=== PATIENT | female | born 1945 | race Caucasian/White ===

== ENCOUNTER 2018-11-19 08:10 | Inpatient (IN) | payer OTHER ==
[~2018-11-19] VITALS: Ht 167.6 cm; Wt 162.4 kg
[2018-11-19] VITALS (28 sets, daily range): BP systolic 66–193; BP diastolic 27–79
[~2018-11-19 08:10] MED LIST: ACET-868 PO; APIX5TAB PO; LEVO500T75 PO
--- NOTE | 2018-11-19 08:15 | NUR ---
PT BIBRA FROM SNF TO ER BED 05. PER REPORT, PT WAS NOTED TO BE ACTIVELY SEIZING FOR APPROX 30 MINS, FENTANYL 5 MCG IM GIVEN. BLOOD GLUCOSE WAS 88 TAKEN BEE TENDER. GOWNED AND PLACED ON MONITOR, AWAITING MD BUTT.
--- NOTE | 2018-11-19 08:16 | NUR ---
DR ATKINS AT BEDSIDE
[2018-11-19] MEDS ORDERED: LEVETIRACETAM (500MG) 500 MG in IV NS 0.9% 100 ML IV ONE (08:30)
[2018-11-19] MEDS ORDERED: IV NS 0.9% 1,000 ML BAG IV ONE (08:30)
[2018-11-19 08:48] LABS: BASOPHILS # (AUTO) 0.1 /CMM (0.0-0.2); BASOPHILS % (AUTO) 0.7 % (0.0-2.0); HEMATOCRIT 52 % (33-45); HEMOGLOBIN 15.9 g/dL (11.5-14.8); LYMPHOCYTES # (AUTO) 0.3 /CMM (0.8-4.8); LYMPHOCYTES % (AUTO) 3.2 % (20.0-44.0); MEAN CORPUSCULAR HGB CONC 31 g/dl (31.0-36.0); MEAN CORPUSCULAR VOLUME 104 fL (82-100); MONOCYTES # (AUTO) 0.8 /CMM (0.1-1.30); MONOCYTES % (AUTO) 8.2 % (2.0-12.0); NEUTROPHILS # (AUTO) 8.6 /CMM (1.8-8.9); NEUTROPHILS % (AUTO) 87.9 % (43.0-81.0); PLATELET COUNT (AUTO) 222 /CMM (150-450); WHITE BLOOD COUNT (AUTO) 9.8 K/uL (4.3-11.0)
--- NOTE | 2018-11-19 08:48 | NUR ---
PT TO RADIOLOGY FOR HEAAD CT SCAN VIA [facility].
[2018-11-19 08:54] LABS: CALCIUM, SERUM 8.8 mg/dL (8.5-10.1); CARBON DIOXIDE 36 mmol/L (21-32); CHLORIDE 105 mmol/L (98-107); CREATININE 2.2 mg/dL (0.6-1.3); GLUCOSE 88 mg/dL (74-106); POTASSIUM 4.8 mmol/L (3.5-5.1); SODIUM SERUM 146 mmol/L (136-145); UREA NITROGEN, BLOOD 23 mg/dL (7-18)
[2018-11-19] MEDS ORDERED: DOCU-141 PO (08:54)
[2018-11-19] MEDS ORDERED: TRAM50TA2 PO (08:54)
[2018-11-19] MEDS ORDERED: AMIN30LI27 PO (08:54)
[2018-11-19] MEDS ORDERED: HYDR-4384 PO (08:54)
[2018-11-19] MEDS ORDERED: GUAI100S11 PO (08:54)
[2018-11-19] MEDS ORDERED: ASCO500T9 PO (08:54)
[2018-11-19] MEDS ORDERED: ACET100V5 NEB (08:54)
[2018-11-19] MEDS ORDERED: LEVA0.6320 IH (08:54)
[2018-11-19] MEDS ORDERED: BISA10SU8 RC (08:54)
[2018-11-19] MEDS ORDERED: IPRA3AMP23 IH (08:54)
[2018-11-19] MEDS ORDERED: ROSU10TA2 PO (08:54)
[2018-11-19] MEDS ORDERED: MULT-447 PO (08:54)
[2018-11-19] MEDS ORDERED: NA P133E RC (08:54)
[2018-11-19] MEDS ORDERED: MAGN400O6 PO (08:54)
[2018-11-19] MEDS ORDERED: MIRT15TA7 PO (08:54)
[2018-11-19] MEDS ORDERED: FURO-145 PO (08:54)
[2018-11-19 09:01] LABS: ALANINE AMINOTRANSFERASE 32 U/L (12-78); ALBUMIN 2.9 g/dL (3.4-5.0); ALKALINE PHOSPHATASE 202 U/L (46-116); ASPARTATE AMINOTRANSFERASE 53 U/L (15-37); BILIRUBIN,DIRECT 0.9 mg/dL (0.0-0.2); BILIRUBIN,TOTAL 1.3 mg/dL (0.2-1.0); TOTAL PROTEIN, SERUM 6.6 g/dL (6.4-8.2)
--- NOTE | 2018-11-19 09:58 | NUR ---
REPORT GIVEN TO ALEXUS JEAN OF [facility] FOR BECK[facility].
--- NOTE | 2018-11-19 11:00 | NUR ---
[facility] ASSEMBLER MOVEMENT NOTES RECEIVED PT FROM ER TO ROOM VIA [email or web address].PT LOOKS SLEEPY AND DROWSY BUT RESPONSE WITH PAINFUL STIMULUS.ON TELE HR [address]WITH 15L O2 VIA NON BREATHER MASK.NO SOB AND ACUTE DISTRESS NOTED.IV LINE IS ON LEFT FA G20,HEPLOCK.SITE IS CLEAN,DRY AND INTACT.NO INFILTRATION NOTED.SKIN ASSESSMENT IS DONE,PHOTOS HAS TAKEN.VITAL SIGNS CHECKED AND RECORDED.PT IS CLEAN AND DRY.SAFETY IS MAINTAINED AT ALL TIMES.SEIZURE PRECAUTION HAS DONE.BED IS IN LOW POSITION AND LOCKED.CALL LIGHT IS WITHIN REACH.WILL CONTINUE TO MONITOR THE PT CLOSELY.
--- NOTE | 2018-11-19 12:30 | NUR ---
R[facility] RN NOTES RP MR.LANESON CHANGED THE CODE STATUS FROM DNR TO FULL CODE.
[2018-11-19] MEDS ORDERED: BISACODYL SUPP (10 MG) 10 MG/SUPP.RECT SUPP.RECT RC PRN (14:00)
[2018-11-19] MEDS ORDERED: NA PHOS,M-B/NA PHOS,DI-BA 1 EA ENEMA RC PRN (14:00)
[2018-11-19] MEDS ORDERED: MAGNESIUM HYDROXIDE 30 ML UDC PO PRN (14:00)
[2018-11-19] MEDS ORDERED: DOCUSATE SODIUM 100 MG CAPSULE PO PRN (14:00)
[2018-11-19] MEDS ORDERED: GUAIFENESIN 300 MG/15 ML UDC PO PRN (14:00)
--- NOTE | 2018-11-19 16:15 | NUR ---
[facility] RN NOTES NOTED WITH O2 SAT 86% WITH NION BREATHER 15L.SUCTIONED MOUTH,STILL DESATURATING.CALLED AND INFORMED HIM.
[2018-11-19] MEDS ORDERED: PANTOPRAZOLE 40 MG VIAL IV SCH (16:30)
--- NOTE | 2018-11-19 16:30 | NUR ---
ROHIT JEAN NOTES DISCUSSED THE CODE STATUS WITH THE SON FRITZ,PT IS FULL CODE, MADE AWARE.PENDING TO SIGN THE POLST.
--- NOTE | 2018-11-19 16:30 | NUR ---
ROHIT RN NOTES SEEN TH EPT,NOTED WITH NON RESPONSIVE AND DESATURATING.ORDERED TO TRANSFER ICU AND INTUBATE PT.
--- NOTE | 2018-11-19 16:45 | NUR ---
[facility] RN NOTES TRANSFERRED PT TO ICU ROOM 262 AND GIVEN REPORT TO TED LANDRY FOR BECKIE.
[2018-11-19] MEDS ORDERED: ALBUTEROL FS 2.5 MG/0.5 ML VIAL.NEB NEB PRN (17:00)
[2018-11-19] MEDS ORDERED: ASCORBIC ACID 500 MG TABLET PO SCH (17:00)
[2018-11-19] MEDS ORDERED: APIXABAN 5 MG TABLET PO SCH (17:00)
[2018-11-19] MEDS ORDERED: IPRATROPIUM NEB FS 0.5 MG/2.5 ML AMPUL.NEB NEB PRN (17:00)
[2018-11-19] MEDS ORDERED: PIPERACILLIN /TAZOBACTAM 3.375 G in IV D5W 50 ML IV ONE (17:00)
--- NOTE | 2018-11-19 17:12 | NUR ---
CALLED DOWN TO PLACE PT ON BIPAP IN [facility] PER DR. CORNEJO. UPON ASSESSMENT OF PATIENT, PT ON NRB AT 15LPM, SPO2 93%, PT IS UNAROUSABLE. TOLD DR. CORNEJO THIS PATIENT NEEDS TO BE INTUBATED. PT TRANSFERRED TO [facility]. INTUBATED IN RM [address] MOISES NGUYEN. PT INTUBATED WITH A 7.5ETT AT 25CM AT THE LIP. VENT SETTINGS PER DR. NGUYEN. VENT ALARMS SET AND AUDIBLE PER POLICY. VENT PLUGGED INTO RED OUTLET. X-RAY AND ABG PENDING. Addendum: 11/19/18 at 1716 by HIWOT MUNOZ RT Amended: Links added.
--- NOTE | 2018-11-19 17:17 | NUR ---
RN NOTE 1700: Received patient from [facility], accompanied by nurses, RTs and Dr. Peters. Prepared for rapid intubation, patient has no reactions. No gag reflex, unable to arouse even in deep pain. Per report, with episode of seizure, CT head (-). With Verdin cath intact, noted with harvinder colored urine drained to BSD. Afib 100-110's. Intub[address] by Dr. Peters. Seen by Dr. Garg. Given 20 Etomidate and 60 Rocu. LH PIV g20.
[2018-11-19] MEDS: PIPERACILLIN /TAZOBACTAM 2.25 G in IV D5W 100 ML IV SCH ×2 (17:19→23:27)
[2018-11-19] MEDS ORDERED: ETOMIDATE 2 MG/ML VIAL IV ONE (17:25)
[2018-11-19] MEDS ORDERED: ROCURONIUM BROMIDE 50 MG/5 ML IV ONE (17:25)
[2018-11-19] MEDS ORDERED: NOREPINEPHRINE 16 MG in IV D5W 500 ML IV PRN (17:30)
[2018-11-19] MEDS ORDERED: IV NS 0.9% 500 ML IV ONE (17:30)
--- NOTE | 2018-11-19 17:49 | NUR ---
RN NOTE 1630: Placed OGT, noted with 500mL dark brown residuals, Dr. Garg made aware, with order to make the Protonix BID. 1750: Benitez, son at bedside, discussed re: the POC and all questions/concerns were answered. PICC line consented by son.
[2018-11-19 18:12] LABS: ABG BASE EXCESS 0.7 mmol/L; ABG PCO2 88.7 mmHg (35.0-45.0); ABG PO2 92.9 mmHg (75.0-100.0); AaDO2 531.4 mmHg; COHb 1.6 % (0.5-1.5); MetHb 0.6 % (0.0-1.5); O2Hb 94.9 % (94.0-97.0); SITE, ABG Right Radial; VENT MODE, BG AC 16 600 100% +5
--- NOTE | 2018-11-19 18:24 | NUR ---
RN NOTE Spoke wtibh Dr. Garg, obtained order for Ativan for seizure and change Vt 650. Obtained pulmo consult, spoke with Dr. Pimentel with order to change AC 20 than ABG 2200.
[2018-11-19] MEDS: LORAZEPAM INJ 2 MG/ML VIAL IV PRN (18:26)
[2018-11-19] MEDS: IV 1/2NS 1000 ML 1,000 ML IV PRN (18:36)
[2018-11-19] MEDS: PROPOFOL 100 ML IV PRN ×2 (18:43→22:05)
--- NOTE | 2018-11-19 18:50 | NUR ---
RN NOTE Ativan given x1, but patient still seizing, made Dr. Garg aware, with order to may start Diprivan for continuous medication to control seizure for now.
--- NOTE | 2018-11-19 18:51 | NUR ---
RN NOTE Sons at bedside, done with PICC line insertion in the MU.
--- NOTE | 2018-11-19 19:00 | NUR ---
RN NOTE Dip on 20mcg, no seizure now. Will keep on 20 mcg for now.
--- NOTE | 2018-11-19 19:00 | NUR ---
RT PT RECEIVED INTUBATED WITH 7.7 ETT @25 ON THE LIP ON [facility] VENT. VENT SETTINGS CHANGED TO RATE 20 AND VT 650 PER MD ORDER. NO SIGNS OF DISTRESS/SOB NOTED AT THIS TIME. AIRWAY PATENT AND SECURED. ALARMS SET AND AUDIBLE. AMBUBAG AT BEDSIDE. PT SUCTIONED. PT GIVEN HHN TX. NO ADVERSE REACTION. VENT CONNECTED TO RED OUTLET. ABG SCHEDULED AT 2200. WILL CONT TO MONITOR. Addendum: 11/19/18 at 0 by KASSIE GIPSON RT Amended: Links added. Addendum: 11/20/18 at 0212 by KASSIE GIPSON RT CORRECTION: ETT SIZE 7.5
[2018-11-19] MEDS: LEVALBUTEROL HCL NEB 1.25 MG/0.5 ML VIAL.NEB IH SCH (19:10)
--- NOTE | 2018-11-19 20:06 | NUR ---
INSTRUMENTAL TEACHER NOTES DR CORNEJO NOTIFIED REGARDING LATEST BP TRENDS. 83/78, PREVIOUSLY 84/49 [address] 77/[address]. DR CORNEJO WITH ORDER TO START LEVOPHED. ORDERS READ BACK FO4 CLARIFICATION. WILL INITIATE PRESSOR AND CONTINUE CLOSE MONITORING
[2018-11-19] MEDS ORDERED: NOREPINEPHRINE 8 MG in IV D5W 500 ML IV PRN (20:30)
[2018-11-19] MEDS: PANTOPRAZOLE 40 MG VIAL IV SCH (20:47)
[2018-11-19] MEDS: VALPROIC ACID 250 MG/5 ML UDC GT SCH (20:47)
[2018-11-19] MEDS: HEPARIN SODIUM, PORCINE 5000 UNITS/1 ML VIAL SQ SCH (21:00)
--- NOTE | 2018-11-19 21:00 | NUR ---
THERAPEUTIC RECREATION SPECIALIST NOTES SCHEDULED MEDICATION HEPARIN 5K UNITS SQ. PATIENT'S SON FRITZ AT BEDSIDE, REFUSING MEDICATION DUE TO DARK BROWN OUTPUT FROM OGT, POSSIBLE GIB. MEDICATION HELD PER FAMILY REQUEST. WILL CONTINUE TO CLOSELY MONITOR
--- NOTE | 2018-11-19 21:45 | NUR ---
SPRING TACKER NOTES PATIENT TRANSFERRED TO [facility] BED BY MULTIPLE SUGAR CANE GROWER AND RT, TOLERATED TRANSFER WELL. WELL CONTINUE CLOSE MONITORING
[2018-11-19] MEDS: LEVETIRACETAM (500MG) 500 MG in IV NS 0.9% 100 ML IV SCH (22:04)
[2018-11-19 22:40] LABS: ABG BASE EXCESS 8.5 mmol/L; ABG OXYGEN SATURATION 98.6 % (92.0-98.5); ABG PCO2 34.8 mmHg (35.0-45.0); ABG PH 7.564 (7.350-7.450); ABG PO2 104.7 mmHg (75.0-100.0); AaDO2 573.5 mmHg; COHb 0.8 % (0.5-1.5); MetHb 0.3 % (0.0-1.5); O2Hb 97.5 % (94.0-97.0); PEEP,BG 5 cm H2O; SITE, ABG Right Radial; VT, ABG 650 mL
[2018-11-19] MEDS ORDERED: PIPERACILLIN /TAZOBACTAM 3.375 G in IV D5W 100 ML IV SCH (23:00)
[2018-11-19] MEDS ORDERED: PIPERACILLIN /TAZOBACTAM 2.25 G in IV D5W 100 ML IV SCH (23:00)
[2018-11-19] MEDS: IV NS 0.9% 250 ML IV PRN (23:29)
[2018-11-20] VITALS (95 sets, daily range): BP systolic 65–120; BP diastolic 37–79
[2018-11-20] MEDS: LEVALBUTEROL HCL NEB 1.25 MG/0.5 ML VIAL.NEB IH SCH ×4 (01:23→19:29)
[2018-11-20] MEDS: PROPOFOL 100 ML IV PRN (03:19)
[2018-11-20 05:06] LABS: BASOPHILS # (AUTO) 0.1 /CMM (0.0-0.2); MONOCYTES # (AUTO) 0.9 /CMM (0.1-1.30); MONOCYTES % (AUTO) 4.5 % (2.0-12.0)
[2018-11-20 05:14] LABS: CALCIUM, SERUM 8.6 mg/dL (8.5-10.1); CARBON DIOXIDE 32 mmol/L (21-32); CHLORIDE 104 mmol/L (98-107); CREATININE 2.3 mg/dL (0.6-1.3); GLUCOSE 99 mg/dL (74-106); POTASSIUM 4.3 mmol/L (3.5-5.1); SODIUM SERUM 145 mmol/L (136-145); UREA NITROGEN, BLOOD 33 mg/dL (7-18)
[2018-11-20 05:22] LABS: BASOPHILS % (AUTO) 0.3 % (0.0-2.0); HEMATOCRIT 47 % (33-45); HEMOGLOBIN 14.9 g/dL (11.5-14.8); LYMPHOCYTES # (AUTO) 0.6 /CMM (0.8-4.8); MEAN CORPUSCULAR HGB CONC 32 g/dl (31.0-36.0); MEAN CORPUSCULAR VOLUME 100 fL (82-100); NEUTROPHILS # (AUTO) 19.2 /CMM (1.8-8.9); NEUTROPHILS % (AUTO) 92.2 % (43.0-81.0); PLATELET COUNT (AUTO) 215 /CMM (150-450); RED BLOOD CELL COUNT(AUTO) 4.69 MIL/uL (4.0-5.2); THYROID STIMULATING HORMONE 0.998 uIU/mL (0.358-3.74); WHITE BLOOD COUNT (AUTO) 20.8 K/uL (4.3-11.0)
[2018-11-20] MEDS: IV 1/2NS 1000 ML 1,000 ML IV PRN ×2 (05:50→15:58)
[2018-11-20] MEDS: PIPERACILLIN /TAZOBACTAM 2.25 G in IV D5W 100 ML IV SCH ×2 (05:50→10:12)
--- NOTE | 2018-11-20 07:00 | NUR ---
LAND MOBILE RADIO TECHNICIAN CLOSING NOTES PATIENT RESTING IN BED, APPEARS COMFORTABLE, NO FACIAL GRIMACE NOTED. PATIENT REMAINS INTUBATED WHILE ON MECHANICAL VENTILATOR, FIO2 TITRATED DOWN TO 60%, TOLERATING WELL. LEVOPHED DRIP TITRATED UP TO 18MCG/MIN. WILL ENDORSE THE PATIENT TO THE AM SHIFT NURSE FOR CONTINUITY OF CARE
[2018-11-20 07:19] LABS: MAGNESIUM 1.7 mg/dL (1.8-2.4); PHOSPHORUS 2.2 mg/dL (2.5-4.9)
[2018-11-20 08:21] LABS: ABG BASE EXCESS 10.5 mmol/L; ABG OXYGEN SATURATION 98.4 % (92.0-98.5); ABG PCO2 29.5 mmHg (35.0-45.0); ABG PO2 100.3 mmHg (75.0-100.0); AaDO2 295.1 mmHg; COHb 0.5 % (0.5-1.5); MetHb 0.5 % (0.0-1.5); O2Hb 97.4 % (94.0-97.0); SITE, ABG Right Radial
--- NOTE | 2018-11-20 08:30 | NUR ---
RN NOTE 0715: Received patient on sedation of Dip @ 20. Will titrate as ordered. With ETT to vent tolerated settings at this time. With MU PICC intact. On IVF infusing as ordered, Levo @ 18mcg. Verdin cath intact, noted with harvinder colored urine drained to BSD. On Big boy bed, turning frequently. GLASS SANDER BELT restraints on for safety. 0800: Diprivan turned off, will monitor for seizure. 0830: S/E by Dr. Garg, off Diprivan now, will continue monitoring for seizures and mentation, noted with BLE movements. Still on 18mcg of Levo. Made aware re: the episode of Vtach run @ 0630 informed by previous nurse. MD aware for the ABG result, with order of vent changes AC 20 600 40, 0 PEEP, RT at bedside aware. Per MD, he will order Mg.
[2018-11-20] MEDS: LEVETIRACETAM (500MG) 500 MG in IV NS 0.9% 100 ML IV SCH (08:55)
[2018-11-20] MEDS: HEPARIN SODIUM, PORCINE 5000 UNITS/1 ML VIAL SQ SCH ×2 (08:56→21:00)
[2018-11-20] MEDS ORDERED: FUROSEMIDE 20 MG TABLET PO SCH (09:00)
[2018-11-20] MEDS ORDERED: MULTIVIT W/MINERALS 1 TAB TABLET PO SCH (09:00)
[2018-11-20] MEDS: Magnesium 1GM/D5W 100ML PREMIX 100 ML IV SCH ×3 (09:01→10:59)
[2018-11-20] MEDS: VALPROIC ACID 250 MG/5 ML UDC GT SCH (09:01)
[2018-11-20] MEDS: PANTOPRAZOLE 40 MG VIAL IV SCH ×2 (09:01→22:04)
[2018-11-20] MEDS: LORAZEPAM INJ 2 MG/ML VIAL IV PRN (11:34)
[2018-11-20] MEDS: POTASSIUM PHOSPHATE MM 7.5 MMOL in IV D5W 100 ML IV SCH ×2 (12:56→15:58)
[2018-11-20] MEDS: ACETYLCYSTEINE 10% SOLN 400 MG/4 ML VIAL NEB SCH ×2 (15:23→23:03)
[2018-11-20] MEDS: PIPERACILLIN /TAZOBACTAM 3.375 G in IV D5W 100 ML IV SCH (17:27)
--- NOTE | 2018-11-20 17:37 | NUR ---
RN NOTE 1130: S/E by Dr. No, with new orders of Mucomyst, CPT. US lungs done, no effusion seen. 1500: S/E by Dr. Buck, spoke with 2 family members at bedside, discussed re: the POC. 1700: Noted patient with more movements, 2 sons at bedside.
[2018-11-20] MEDS ORDERED: phenytoin SODIUM IV 1,500 MG in IV NS 0.9% 100 ML IV ONE (18:30)
--- NOTE | 2018-11-20 20:53 | NUR ---
SULPHATE TESTER INITIAL NOTES RECEIVED PATIENT RESTING IN BED, OFF DIPRIVAN @ 0800, APPEARS COMFORTABLE, NO FACIAL GRIMACE NOTED. PATIENT REMAINS INTUBATED WHILE ON MECHANICAL VENTILATOR, FIO2 TITRATED DOWN TO 50%, TOLERATING WELL. LEVOPHED DRIP TITRATED UP TO 18MCG/MIN, CONT' 1/2 NS @ 100 ML/HR, WELL TOLERATED, MU PICC INTACT, NO SIGN OF INFILTRATION NOTED. WILL CONT' TO MONITOR PT.
--- NOTE | 2018-11-20 21:00 | NUR ---
HEPARIN 5000 UNITS HOLD, PT 13.4, WILL ENDORSE TO AM SHIFT TO F/U WITH DR CORNEJO.
[2018-11-20] MEDS ORDERED: ATORVASTATIN 10 MG TABLET PO SCH (22:00)
[2018-11-21] VITALS (55 sets, daily range): BP systolic 85–120; BP diastolic 12–83
[2018-11-21] MEDS: LEVALBUTEROL HCL NEB 1.25 MG/0.5 ML VIAL.NEB IH SCH ×4 (00:43→19:53)
[2018-11-21] MEDS: PHENYTOIN SODIUM IV 50 MG/ML VIAL IV SCH ×3 (00:49→16:29)
[2018-11-21] MEDS: PIPERACILLIN /TAZOBACTAM 3.375 G in IV D5W 100 ML IV SCH ×3 (03:26→18:00)
[2018-11-21] MEDS: IV 1/2NS 1000 ML 1,000 ML IV PRN ×2 (04:51→16:39)
[2018-11-21 05:03] LABS: BASOPHILS % (AUTO) 0.3 % (0.0-2.0); EOSINOPHILS % (AUTO) 0.1 % (0.0-6.0); HEMATOCRIT 42 % (33-45); HEMOGLOBIN 13.8 g/dL (11.5-14.8); LYMPHOCYTES # (AUTO) 0.6 /CMM (0.8-4.8); LYMPHOCYTES % (AUTO) 5.1 % (20.0-44.0); MEAN CORPUSCULAR HGB CONC 33 g/dl (31.0-36.0); MEAN CORPUSCULAR VOLUME 97 fL (82-100); MONOCYTES # (AUTO) 0.8 /CMM (0.1-1.30); MONOCYTES % (AUTO) 6.9 % (2.0-12.0); NEUTROPHILS # (AUTO) 10.2 /CMM (1.8-8.9); NEUTROPHILS % (AUTO) 87.6 % (43.0-81.0); PLATELET COUNT (AUTO) 189 /CMM (150-450); RED BLOOD CELL COUNT(AUTO) 4.32 MIL/uL (4.0-5.2); WHITE BLOOD COUNT (AUTO) 11.7 K/uL (4.3-11.0)
[2018-11-21 05:11] LABS: ALANINE AMINOTRANSFERASE 25 U/L (12-78); ALBUMIN 2.1 g/dL (3.4-5.0); ALKALINE PHOSPHATASE 121 U/L (46-116); ASPARTATE AMINOTRANSFERASE 46 U/L (15-37); BILIRUBIN,TOTAL 1.6 mg/dL (0.2-1.0); CALCIUM, SERUM 8.1 mg/dL (8.5-10.1); CARBON DIOXIDE 31 mmol/L (21-32); CHLORIDE 104 mmol/L (98-107); CREATININE 1.7 mg/dL (0.6-1.3); GLUCOSE 126 mg/dL (74-106); PHOSPHORUS 1.7 mg/dL (2.5-4.9); POTASSIUM 3.3 mmol/L (3.5-5.1); SODIUM SERUM 142 mmol/L (136-145); TOTAL PROTEIN, SERUM 5.2 g/dL (6.4-8.2); UREA NITROGEN, BLOOD 30 mg/dL (7-18)
--- NOTE | 2018-11-21 06:03 | NUR ---
MOLDER SWEEP CLOSING NOTES ENDORSED PATIENT RESTING IN BED, OFF DIPRIVAN @ 0800, APPEARS COMFORTABLE, NO FACIAL GRIMACE NOTED. PATIENT REMAINS INTUBATED WHILE ON MECHANICAL VENTILATOR, FIO2 TITRATED DOWN TO 50%, TOLERATING WELL. LEVOPHED DRIP TITRATED UP TO 18MCG/MIN, CONT' 1/2 NS @ 100 ML/HR, WELL TOLERATED, MU PICC INTACT, NO SIGN OF INFILTRATION NOTED. WILL CONT' TO MONITOR PT.
[2018-11-21] MEDS ORDERED: phenytoin SODIUM IV 1,000 MG in IV NS 0.9% 100 ML IV ONE (08:00)
[2018-11-21] MEDS: ACETYLCYSTEINE 10% SOLN 400 MG/4 ML VIAL NEB SCH ×3 (08:04→23:42)
[2018-11-21 08:51] LABS: ABG BASE EXCESS 10.9 mmol/L; ABG OXYGEN SATURATION 95.1 % (92.0-98.5); ABG PCO2 36.7 mmHg (35.0-45.0); ABG PH 7.577 (7.350-7.450); ABG PO2 73.3 mmHg (75.0-100.0); AaDO2 241.9 mmHg; COHb 0.8 % (0.5-1.5); MetHb 0.6 % (0.0-1.5); O2Hb 93.8 % (94.0-97.0); SITE, ABG Right Radial; VENT MODE, BG AC 20 600 50% +3
[2018-11-21] MEDS: HEPARIN SODIUM, PORCINE 5000 UNITS/1 ML VIAL SQ SCH ×2 (09:13→20:45)
[2018-11-21] MEDS: PANTOPRAZOLE 40 MG VIAL IV SCH ×2 (09:13→20:44)
[2018-11-21] MEDS ORDERED: POTASSIUM CL. PREMIX PERIPHER. 50 ML IV SCH ×2 (09:30→13:30)
[2018-11-21] MEDS ORDERED: NOREPINEPHRINE 16 MG in IV D5W 500 ML IV PRN ×5 (10:00→18:00)
--- NOTE | 2018-11-21 10:00 | NUR ---
PT LETHARGIC, BUT OPENS EYES TO TACTILE STIMULI NO SEIZURE ACTIVITY NOTED. LEVOPHED TITRATED OFF PER PROTOCOL SBP REMAINS >90. PT ASSISTED WITH AM HYGRINE. NO OUTPUT VIA NGT NOTED WILL VERIFY WITH MD IF OK TO CLAMP. WILL REPLACE K AND PHOS ORDERED.
[2018-11-21] MEDS: Potassium Phosphate meq 11 MEQ in IV D5W 100 ML IV SCH ×2 (13:25→16:27)
[2018-11-21] MEDS ORDERED: POTASSIUM CHLORIDE 10 MEQ/50 ML PREMIXED IVPB FOR PERIPHERAL LINE IV ONE (13:30)
--- NOTE | 2018-11-21 20:00 | NUR ---
RN NOTES RECEIVED PT WITH ETT 7.5/ 25 CM AT LIP WITH VENT SETTING OF AC 14 TV 550 FIO2 50% PEEP 5. a-FIB ON TELE MONITOR OPENS EYES. NO sob OR ACUTE RESPIRATORY DISTRESS. NO SEDATION OFF FROM PRESSORS. AFEBRILE. NO EPISODE OF SEIZURE PRESENT. OGT CLAMPED WITH GREENISH COLOR RESIDUAL.. F/C DRAINED YAN GRAVITY WITH WM COLOR URINE. IV SITE ON MU PICC LINE RUNNING WITH 1/2 NS @ 100 ML/HR INTACT AND PATENT WITH GOOD BLOOD RETURN. KEPT PT CLEAN AND COMFORTABLE IN BED. BIG BOY MATTRESS KEPT IN LOWEST POSSIBLE POSITION. BED LOCKED AT ALL TIMES.
--- NOTE | 2018-11-21 20:37 | NUR ---
PT RECEIVED INTUBATED ON VENT. TOLERATING SETTINGS. CPT DONE. SX'D FOR MOD AMT OF THICK YELLOW SECRETIONS. VENT ALARMS SET AND AUDIBLE. AMBU BAG AT BEDSIDE. VENT PLUGGED INTO RED OUTLET. WILL CONTINUE TO MONITOR. Addendum: 11/21/18 at 2037 by BASSEM PARK RT Amended: Links added.
[2018-11-21] MEDS: NYSTATIN TOP POWDER 15 GM BOTTLE TP SCH (20:42)
--- NOTE | 2018-11-21 21:00 | NUR ---
RN NOTES CPT DONE BY RT
[2018-11-22] VITALS (58 sets, daily range): BP systolic 83–147; BP diastolic 48–91
[2018-11-22] MEDS: PHENYTOIN SODIUM IV 50 MG/ML VIAL IV SCH ×3 (00:15→21:01)
[2018-11-22] MEDS: LEVALBUTEROL HCL NEB 1.25 MG/0.5 ML VIAL.NEB IH SCH ×2 (01:13→07:46)
[2018-11-22] MEDS: PIPERACILLIN /TAZOBACTAM 3.375 G in IV D5W 100 ML IV SCH ×3 (01:26→17:08)
[2018-11-22] MEDS: IV 1/2NS 1000 ML 1,000 ML IV PRN ×2 (02:24→13:53)
[2018-11-22 04:35] LABS: BASOPHILS # (AUTO) 0.1 /CMM (0.0-0.2); BASOPHILS % (AUTO) 0.8 % (0.0-2.0); EOSINOPHILS % (AUTO) 1.8 % (0.0-6.0); HEMATOCRIT 42 % (33-45); HEMOGLOBIN 13.6 g/dL (11.5-14.8); LYMPHOCYTES # (AUTO) 0.4 /CMM (0.8-4.8); LYMPHOCYTES % (AUTO) 5.5 % (20.0-44.0); MEAN CORPUSCULAR HGB CONC 33 g/dl (31.0-36.0); MEAN CORPUSCULAR VOLUME 97 fL (82-100); MONOCYTES # (AUTO) 0.6 /CMM (0.1-1.30); MONOCYTES % (AUTO) 7.4 % (2.0-12.0); NEUTROPHILS # (AUTO) 6.6 /CMM (1.8-8.9); NEUTROPHILS % (AUTO) 84.5 % (43.0-81.0); PLATELET COUNT (AUTO) 167 /CMM (150-450); RED BLOOD CELL COUNT(AUTO) 4.32 MIL/uL (4.0-5.2); WHITE BLOOD COUNT (AUTO) 7.8 K/uL (4.3-11.0)
[2018-11-22 04:51] LABS: CALCIUM, SERUM 7.9 mg/dL (8.5-10.1); CARBON DIOXIDE 33 mmol/L (21-32); CHLORIDE 103 mmol/L (98-107); CREATININE 1.3 mg/dL (0.6-1.3); GLUCOSE 85 mg/dL (74-106); PHOSPHORUS 2.5 mg/dL (2.5-4.9); POTASSIUM 3.4 mmol/L (3.5-5.1); SODIUM SERUM 143 mmol/L (136-145); UREA NITROGEN, BLOOD 23 mg/dL (7-18)
--- NOTE | 2018-11-22 06:55 | NUR ---
RN NOTES PATIENT IN STABLE CONDITION,CONTINUE WITH ETT AND VENT, SETTING TOLERATED WELL. STILL A- FIB CONTROLLED ON TELE MONITOR AFEBRILE. VSS NO SIGNIFICANT BECKIE THROUGHOUT THE SHIFT. NO PRESSOR NO SEDATION. BED BATH DONE AND TOLERATED WELL. SATURATION REMAINED >96%. PT IS CLEAN AND DRY. ALL DUE MEDICINE ADMINISTERED ORDERED. WILL ENDORSED CONTINUITY OFCARE TO AM NURSE..
[2018-11-22] MEDS ORDERED: PHENYTOIN SODIUM IV STA (07:00)
[2018-11-22] MEDS ORDERED: NS 0.9% IV STA (07:00)
[2018-11-22] MEDS: ACETYLCYSTEINE 10% SOLN 400 MG/4 ML VIAL NEB SCH ×3 (07:46→23:27)
--- NOTE | 2018-11-22 08:24 | NUR ---
SEROLOGY TEACHER NOTE RCVD PT AWAKE, RESPONDS TO NAME, LETHARGIC, NOT FOLLOWING COMMANDS BUT APPEARS TO ACKNOWLEDGE INFORMATION GIVEN, BILATERAL SOFT WRIST RESTRAINTS IN PLACE, CIRCULATION CHECKS DONE, RELEASE OF RESTRAINTS DONE WITH PASSIVE ROM, PT REACHES TO ETT WHEN RELEASED. AFIB ON MONITOR WITH CONTROLLED RATE. TOLERATING ORDERED VENT SETTINGS WELL. OG-TUBE CLAMPED PLACEMENT VERIFIED BY AUSCULTATION/ASPIRATION OF GASTRIC CONTENTS, GARCIA TO GRAVITY DRAINING WM COLORED URINE. IV SITES C/D/I/PATENT. NO S/O INFILTRATION/PHLEBITIS OBSERVED UPON FLUSHING. WILL CONTINUE TO MONITOR PT FOR SAFETY AND COMFORT. BED IN LOW AND LOCKED POSITION. CALL LIGHT WITHIN REACH. HEAD OF BED ELEVATED.
[2018-11-22] MEDS: PANTOPRAZOLE 40 MG VIAL IV SCH ×2 (09:16→21:02)
[2018-11-22] MEDS: NYSTATIN TOP POWDER 15 GM BOTTLE TP SCH ×2 (09:17→17:04)
[2018-11-22] MEDS: HEPARIN SODIUM, PORCINE 5000 UNITS/1 ML VIAL SQ SCH ×2 (09:19→21:03)
[2018-11-22] MEDS: ALBUTEROL FS 2.5 MG/3 ML VIAL.NEB NEB SCH ×4 (11:09→23:27)
[2018-11-22] MEDS: POTASSIUM CL. PREMIX PERIPHER. 50 ML IV SCH ×2 (11:22→12:11)
--- NOTE | 2018-11-22 14:16 | NUR ---
FACING CUTTING MACHINE OPERATOR NOTE PT REMAINS STABLE, PT'S SONFRITZ AT BEDSIDE UPDATED ON PT'S CONDITION INFORMED THAT DR. HOOPER RECOMMENDS BRONCHOSCOPY PENDING CHEST X-RAY RESULTS IN AM, MEANWHILE, CHEST PT DONE BY RT. WILL DISCUSS WITH FAMILY AND CONSENT IN AM. KRYSTLE HERNADEZ AWARE.
--- NOTE | 2018-11-22 18:09 | NUR ---
RT END OF THE SHIFT REPORT, PT. 73 Y OLD FEMALE REC'D 0630 AM ORALLY INTUBATED ETT #7.5 @25CM LIP LINE. PT. APPEARS COMFORTABLE AND SHOWS NO SIGNS OF RESP DISTRESS OR SOB ON VENT. WITH NOTED SETTINGS. @1015 VENT CHANGES DONE PER DR. HOOPER ORDER. RN INFORMED OF CHANGES (RR16, VT 550 ML) CPT DONE TX'S GIVEN INLINE, NO ADVERSE REACTION NOTED. BITE BLOCK INSERTED TO ETT TUBE DUE TO BITING, ANCHOR FAST CHANGED.SX'D FOR LARGE AMT OF THICK YELLOW/WHITE SECRETIONS. B/S BILATERALLY RHONCHI, EQUAL CHEST RISE NOTED. ALARMS ARE SET AND FUNCTIONAL. VENT PLUGGED INTO RED OUTLET. AMBU BAG REMAIN AT THE BEDSIDE. HME CHANGED. WILL CONTINUE TO MONITOR CLOSELY. REPORT WILL PASS TO PM SHIFT. Addendum: 11/22/18 at 1815 by LATANYA OLSON RT Amended: Links added.
--- NOTE | 2018-11-22 18:48 | NUR ---
REPRESENTATIVE PHLEBOTOMY SERVICES NOTE PT REMAINS STABLE, OFF PRESSORS, TOLERATING ORDERED VENT SETTINGS, CONTROLLED AFIB ON MONITOR, UMBRELLA MENDER RESTRAINTS REMAIN IN PLACE, CIRCULATION CHECKS DONE. OG-TUBE PLACEMENT VERIFIED BY AUSCULTATION/ASPIRATION OF GASTRIC CONTENTS, GARCIA TO GRAVITY DRAINING CLOUDY, WM COLORED URINE. MU PICC SITE C/D/I/PATENT. NO S/O INFILTRATION/PHLEBITIS OBSERVED IVF INFUSING ORDERED. PT'S CARE WILL BE ENDORSED TO ROLL FILLER RN FOR CONTINUITY OF CARE, BED IN LOW AND LOCKED POSITION. CALL LIGHT WITHIN REACH. HEAD OF BED ELEVATED.
--- NOTE | 2018-11-22 19:40 | NUR ---
RN NOTES PT ORALLY INTUBATED WITH ETT 7.5/ 25 CM AT LIP WITH VENT SETTING OF AC 16 TV 550 FIO2 50% PEEP 5. a-FIB ON TELE MONITOR OPENS EYES. NO SOB OR ACUTE RESPIRATORY DISTRESS. AFEBRILE. NO EPISODE OF SEIZURE PRESENT. OGT CLAMPED WITH GREENISH COLOR RESIDUAL.. F/C DRAINED VIA GRAVITY WITH WM COLOR URINE. IV SITE ON MU PICC LINE WITH 1/2 NS @ 100 ML/HR INTACT AND PATENT WITH GOOD BLOOD RETURN. KEPT PT CLEAN AND COMFORTABLE IN BED. BIG BOY MATTRESS KEPT IN LOWEST POSSIBLE POSITION. WILL CONTINUE TO MONITOR.
[2018-11-23] VITALS (46 sets, daily range): BP systolic 90–135; BP diastolic 55–82
[2018-11-23] MEDS: IV 1/2NS 1000 ML 1,000 ML IV PRN ×3 (00:09→20:41)
[2018-11-23] MEDS: PIPERACILLIN /TAZOBACTAM 3.375 G in IV D5W 100 ML IV SCH ×3 (02:50→17:44)
[2018-11-23] MEDS: ALBUTEROL FS 2.5 MG/3 ML VIAL.NEB NEB SCH ×6 (03:18→23:34)
[2018-11-23 05:13] LABS: CREATININE 1.2 mg/dL (0.6-1.3); GLUCOSE 72 mg/dL (74-106); UREA NITROGEN, BLOOD 18 mg/dL (7-18)
[2018-11-23 05:15] LABS: BASOPHILS # (AUTO) 0.1 /CMM (0.0-0.2); BASOPHILS % (AUTO) 0.8 % (0.0-2.0); EOSINOPHILS % (AUTO) 2.3 % (0.0-6.0); HEMATOCRIT 40 % (33-45); HEMOGLOBIN 13.1 g/dL (11.5-14.8); LYMPHOCYTES # (AUTO) 0.3 /CMM (0.8-4.8); LYMPHOCYTES % (AUTO) 5.5 % (20.0-44.0); MEAN CORPUSCULAR HGB CONC 32 g/dl (31.0-36.0); MEAN CORPUSCULAR VOLUME 98 fL (82-100); MONOCYTES # (AUTO) 0.5 /CMM (0.1-1.30); MONOCYTES % (AUTO) 8.2 % (2.0-12.0); NEUTROPHILS % (AUTO) 83.2 % (43.0-81.0); PHENYTOIN (DILANTIN) 12.9 ug/ml (10.0-20.0); PLATELET COUNT (AUTO) 152 /CMM (150-450); RED BLOOD CELL COUNT(AUTO) 4.13 MIL/uL (4.0-5.2)
[2018-11-23 05:20] LABS: CARBON DIOXIDE 33 mmol/L (21-32); CHLORIDE 103 mmol/L (98-107); POTASSIUM 3.5 mmol/L (3.5-5.1); SODIUM SERUM 143 mmol/L (136-145)
--- NOTE | 2018-11-23 07:20 | NUR ---
RN NOTES PATIENT REMAINED IN THE SAME CONDITION. NO SIGNIFICANT CHANGE THROUGHOUT THE SHIFT. ORALLY INTUBATED WITH THE SAME SETTING AND TOLERATED WELL. AFEBRILE. VSS. BED BATH DONE. MAXIMUM ASSISTANCE PROVIDED. BED LOCKED AND IN LOWEST POSSIBLE POSITIONED. ENDORSED CONTINUITY OFCARE TO AM NURSE. AND TO FOLLOW UP FAMILY REGARDING THE CONSENT FOR BRONCHOSCOPY.
--- NOTE | 2018-11-23 07:30 | NUR ---
RN NOTES RECVD REPORT PATIENT IS ORALLY INTUBATED WITH ETT 7.5/ 25 CM AT LIP WITH VENT SETTING OF AC 16 TV 550 FIO2 40% PEEP 5. ON AERONAUTICS TEACHER, PATIENT RHYTHM IS A-FIB HR 81. PATIENT IS ALERT NONVERBAL, AFEBRILE. NO EPISODE OF SEIZURE PRESENT. OGT CLAMPED WITH GREENISH COLOR RESIDUAL. F/C DRAINED VIA GRAVITY WITH WM COLOR URINE NOTED. IV SITE ON MU PICC LINE WITH 1/2 NS @ 100 ML/HR INTACT AND PATENT. BED LOW AND LOCKED POSITION. ALL SAFETY MEASURES DONE. WILL CONTINUE TO MONITOR PATIENT.
[2018-11-23] MEDS: ACETYLCYSTEINE 10% SOLN 400 MG/4 ML VIAL NEB SCH ×3 (07:36→23:34)
[2018-11-23 09:01] LABS: ABG BASE EXCESS 5.5 mmol/L; ABG PCO2 47.8 mmHg (35.0-45.0); ABG PH 7.428 (7.350-7.450); ABG PO2 96.4 mmHg (75.0-100.0); AaDO2 133.8 mmHg; MetHb 0.5 % (0.0-1.5); O2Hb 95.5 % (94.0-97.0); PEEP,BG 5 cm H2O; SITE, ABG Right Radial; VT, ABG 550 mL
[2018-11-23] MEDS: NYSTATIN TOP POWDER 15 GM BOTTLE TP SCH ×2 (09:13→16:29)
[2018-11-23] MEDS: HEPARIN SODIUM, PORCINE 5000 UNITS/1 ML VIAL SQ SCH ×2 (09:15→20:38)
[2018-11-23] MEDS: PANTOPRAZOLE 40 MG VIAL IV SCH ×2 (09:15→20:37)
[2018-11-23] MEDS: PHENYTOIN SODIUM IV 50 MG/ML VIAL IV SCH ×2 (09:15→20:38)
--- NOTE | 2018-11-23 11:25 | NUR ---
RN NOTE CALLED SON FRITZ AND RECEIVED A VERBAL CONSENT FOR PATIENT TO HAVE A BRONCHOSCOPY LATER TODAY. SECONDARY WITNESS RN PRESENT.
[2018-11-23] MEDS ORDERED: LIDOCAINE 2% JEL 5 ML TUBE MC ONE ×2 (16:00→16:30)
--- NOTE | 2018-11-23 16:15 | NUR ---
RN NOTE DR HOOPER AT BEDSIDE WITH RT TO PREFORM A BRONCHOSCOPY. INITIATED DIPRIVAN PER MD ORDER. PATIENT IS STABLE WITH NO DISTRESS NOTED. VS ARE STABLE. WILL CONTINUE TO MONITOR PATIENT.
[2018-11-23] MEDS: PROPOFOL 100 ML IV PRN (16:27)
[2018-11-23] MEDS: LORAZEPAM INJ 2 MG/ML VIAL IV PRN (16:29)
--- NOTE | 2018-11-23 16:30 | NUR ---
RN NOTE BRONCHOSCOPY COMPLETE, PATIENT REMAINS STABLE WITH NO DISTRESS NOTED. VS ARE ARE STABLE AND DOCUMENTED. SPECIMEN COLLECTED AND SENT TO LAB PER MD ORDER.
--- NOTE | 2018-11-23 16:31 | NUR ---
RN NOTE ONLY 1 TUBE OF LIDOCAINE USED DURING THE PROCEDURE.
--- NOTE | 2018-11-23 18:44 | NUR ---
RN NOTE PATIENT REMAINED STABLE THROUGHOUT SHIFT. NO DISTRESS NOTED AND ANY ACUTE CHANGES. WILL ENDORSE TO NEXT SHIFT TO CONTINUE TO MONITOR CONTINUITY OF CARE.
--- NOTE | 2018-11-23 20:24 | NUR ---
RECEIVED PT INTUBATED 7.5 ETT SECURED AT 25CM AT THE LIP. PT TOLERATING VENT SETTINGS. SX'D FOR MOD AMT OF THIN WHITE SECRETIONS. CPT DONE ON THE LEFT SIDE TOLERATED IT WELL. VENT ALARMS SET AND AUDIBLE. AMBU BAG AT BEDSIDE. WILL CONTINUE TO MONITOR. Addendum: 11/23/18 at 2025 by BASSEM PARK RT Amended: Links added.
[2018-11-24] VITALS (37 sets, daily range): BP systolic 86–125; BP diastolic 50–80
[2018-11-24] MEDS: PROPOFOL 100 ML IV PRN ×3 (00:45→22:22)
[2018-11-24] MEDS: PIPERACILLIN /TAZOBACTAM 3.375 G in IV D5W 100 ML IV SCH ×3 (01:19→17:37)
[2018-11-24] MEDS: IV NS 0.9% 250 ML IV PRN (01:19)
[2018-11-24] MEDS: ALBUTEROL FS 2.5 MG/3 ML VIAL.NEB NEB SCH ×6 (03:14→22:51)
[2018-11-24 04:41] LABS: BASOPHILS # (AUTO) 0.1 /CMM (0.0-0.2); BASOPHILS % (AUTO) 0.9 % (0.0-2.0); HEMATOCRIT 39 % (33-45); HEMOGLOBIN 12.6 g/dL (11.5-14.8); LYMPHOCYTES # (AUTO) 0.3 /CMM (0.8-4.8); LYMPHOCYTES % (AUTO) 4.6 % (20.0-44.0); MEAN CORPUSCULAR HGB CONC 33 g/dl (31.0-36.0); MEAN CORPUSCULAR VOLUME 98 fL (82-100); MONOCYTES # (AUTO) 0.4 /CMM (0.1-1.30); MONOCYTES % (AUTO) 7.3 % (2.0-12.0); NEUTROPHILS % (AUTO) 84.2 % (43.0-81.0); PLATELET COUNT (AUTO) 136 /CMM (150-450); RED BLOOD CELL COUNT(AUTO) 3.96 MIL/uL (4.0-5.2)
[2018-11-24 04:55] LABS: CALCIUM, SERUM 7.7 mg/dL (8.5-10.1); CARBON DIOXIDE 30 mmol/L (21-32); CHLORIDE 104 mmol/L (98-107); GLUCOSE 52 mg/dL (74-106); MAGNESIUM 1.8 mg/dL (1.8-2.4); PHOSPHORUS 2.2 mg/dL (2.5-4.9); POTASSIUM 3.4 mmol/L (3.5-5.1); SODIUM SERUM 143 mmol/L (136-145); UREA NITROGEN, BLOOD 16 mg/dL (7-18)
[2018-11-24] MEDS: IV 1/2NS 1000 ML 1,000 ML IV PRN (07:00)
--- NOTE | 2018-11-24 07:10 | NUR ---
SENIOR DATA WAREHOUSE ARCHITECT INITIAL NOTES RECEIVED PT FROM NIGHTSHIFT RN IN STABLE CONDITION. PT SEDATED ON DIPRIVAN DRIP AT 5MIC. PT INTUBATED ON MECHANICAL VENT. VENT SETTINGS CHECKED FOR ACCURACY. (ETT 7.5/25, AC 16, TV 550, FIO2 40% PEEP 5) PT CURRENTLY SATING AT 100%. NO SOB OR ACUTE SIGNS OF DISTRESS NOTED. BREATHING EVEN AND UNLABORED. OG NOTED TO BE C/D/I. POSITIVE PLACEMENT VERIFIED VIA AUSCULTATION. GARCIA CATHETER NOTED TO BE INTACT AND DRAINING TO GRAVITY. RIGHT UPPER ARM PICC LINE NOTED TO BE PATENT AND INTACT. NO REDNESS OR SIGNS OF INFILTRATION NOTED. PT TOLERATING IV FLUID INFUSION WELL. PT CURRENTLY AFIB ON THE TELE MONITOR WITH A HR OF 63. BED IN LOW LOCKED POSITION, SIDE RAILS UP X3. WILL CONTINUE TO MONITOR
[2018-11-24] MEDS: ACETYLCYSTEINE 10% SOLN 400 MG/4 ML VIAL NEB SCH ×3 (08:24→22:51)
[2018-11-24 09:01] LABS: ABG BASE EXCESS 3.6 mmol/L; ABG PO2 94.3 mmHg (75.0-100.0); AaDO2 143.8 mmHg; COHb 0.9 % (0.5-1.5); MetHb 0.3 % (0.0-1.5); O2Hb 95.8 % (94.0-97.0); PEEP,BG 5 cm H2O; SITE, ABG Left Radial; VT, ABG 550 mL
[2018-11-24] MEDS ORDERED: POTASSIUM CHLORIDE 20 MEQ POWDER PACKET NG ONE (09:30)
[2018-11-24] MEDS: K PHOS NEUTRAL 250 MG TABLET NG SCH ×4 (09:32→21:01)
[2018-11-24] MEDS: FUROSEMIDE 20 MG/2 ML VIAL IV SCH ×2 (09:33→17:36)
[2018-11-24] MEDS: PANTOPRAZOLE 40 MG VIAL IV SCH ×2 (09:33→21:01)
[2018-11-24] MEDS: PHENYTOIN SODIUM IV 50 MG/ML VIAL IV SCH ×2 (09:33→21:01)
[2018-11-24] MEDS: HEPARIN SODIUM, PORCINE 5000 UNITS/1 ML VIAL SQ SCH ×2 (09:35→21:02)
[2018-11-24] MEDS: NYSTATIN TOP POWDER 15 GM BOTTLE TP SCH ×2 (09:53→17:37)
[2018-11-24] MEDS ORDERED: IV D5/0.45 NACL 1,000 ML IV PRN (10:00)
[2018-11-24] MEDS ORDERED: VANCOMYCIN 2 GM in IV D5W 500 ML IV ONE (10:30)
[2018-11-24] MEDS: Potassium Chloride 10 MEQ in IV D5/ 0.9% NACL 1,000 ML IV PRN (11:19)
[2018-11-24] MEDS ORDERED: FEE PK DOSING 1 MIN EA MC ONE (11:24)
--- NOTE | 2018-11-24 16:22 | NUR ---
CATALYST OPERATOR GASOLINE NOTES: CHEST CT RESULTS RESULTS OF CHEST CT RELAYED TO DR. HOOPER. NO NEW ORDERS AT THIS TIME. WILL CONTINUE TO MONITOR
[2018-11-24] MEDS: PROSOURCE / PROSTAT (PYXIS) 30 ML UDC GT SCH (17:00)
[2018-11-24] MEDS: JEVITY 1.2 CAL 1,000 ML BOTTLE GT PRN (17:34)
--- NOTE | 2018-11-24 18:56 | NUR ---
LEHR LOADER CLOSING NOTES PT REMAINS STABLE. ALL NEEDS ANTICIPATED FOR AND MET DURING SHIFT. ALL DUE MEDS GIVEN. PRN CARE RENDERED. PT REPOSITIONED AND TURNED PER PROTOCOL. PT TOLERATING TUBE FEEDING WELL AT THIS TIME. INVASIVE LINES REMAIN PATENT AND INTACT. SAFETY MEASURES REMAIN IN PLACE. WILL ENDORSE TO NIGHTSHIFT RN FOR BECKIE
--- NOTE | 2018-11-24 19:47 | NUR ---
RECEIVED PT ORALLY INTUBATED 7.5 ETT SECURED AT 25CM AT THE LIP. PT TOLERATING VENT SETTINGS. PT IS SEDATED. SUCTIONED MODERATE AMT OF PINK TINGED SECRETIONS. CPT DONE ON THE LEFT SIDE TOLERATED IT WELL. VENT ALARMS SET AND AUDIBLE. AMBU BAG AT BEDSIDE. WILL CONTINUE TO MONITOR.
[2018-11-25] VITALS (58 sets, daily range): BP systolic 76–127; BP diastolic 49–79
[2018-11-25] MEDS: VANCOMYCIN 1.25 GM in IV D5W 500 ML IV SCH ×2 (00:51→17:01)
[2018-11-25] MEDS: PIPERACILLIN /TAZOBACTAM 3.375 G in IV D5W 100 ML IV SCH ×3 (02:00→17:01)
[2018-11-25] MEDS: ALBUTEROL FS 2.5 MG/3 ML VIAL.NEB NEB SCH ×5 (03:51→19:55)
[2018-11-25] MEDS: PROPOFOL 100 ML IV PRN ×3 (04:57→22:36)
[2018-11-25 05:02] LABS: CALCIUM, SERUM 7.8 mg/dL (8.5-10.1); CARBON DIOXIDE 31 mmol/L (21-32); CHLORIDE 102 mmol/L (98-107); CREATININE 1.1 mg/dL (0.6-1.3); GLUCOSE 133 mg/dL (74-106); MAGNESIUM 1.6 mg/dL (1.8-2.4); PHOSPHORUS 3.5 mg/dL (2.5-4.9); POTASSIUM 3.1 mmol/L (3.5-5.1); SODIUM SERUM 142 mmol/L (136-145); UREA NITROGEN, BLOOD 13 mg/dL (7-18)
--- NOTE | 2018-11-25 07:18 | NUR ---
STRUCTURES ASSEMBLER NOTE PT REMAINED STABLE DURING SHIFT. NO ACUTE DISTRESS NOTED. VENT SETTINGS WELL TOLERATED. ON ASPIRATION PRECAUTIONS. ALL NEEDS ATTENDED TO PROMPTLY. TUBE FEEDING INFUSING AND WELL TOLERATED. KEPT CLEAN AND DRY. SUCTIONED NEEDED. WILL ENDORSE TO NEXT SHIFT FOR CONTINUITY OF CARE.
[2018-11-25] MEDS: ACETYLCYSTEINE 10% SOLN 400 MG/4 ML VIAL NEB SCH ×2 (07:48→15:30)
[2018-11-25] MEDS ORDERED: POTASSIUM CHLORIDE 20 MEQ TAB.PRT.SR PO ONE (08:30)
[2018-11-25] MEDS: PHENYTOIN SODIUM IV 50 MG/ML VIAL IV SCH ×2 (08:47→21:16)
[2018-11-25] MEDS: PANTOPRAZOLE 40 MG VIAL IV SCH ×2 (08:47→21:17)
[2018-11-25] MEDS: Magnesium 1GM/D5W 100ML PREMIX 100 ML IV SCH ×3 (08:48→11:37)
[2018-11-25] MEDS: PROSOURCE / PROSTAT (PYXIS) 30 ML UDC GT SCH ×2 (08:49→16:46)
[2018-11-25] MEDS: HEPARIN SODIUM, PORCINE 5000 UNITS/1 ML VIAL SQ SCH ×2 (08:49→21:18)
[2018-11-25] MEDS: NYSTATIN TOP POWDER 15 GM BOTTLE TP SCH ×2 (08:58→16:46)
[2018-11-25] MEDS ORDERED: DOCUSATE SODIUM LIQ 100 MG/10 ML UDC GT PRN (09:00)
[2018-11-25] MEDS ORDERED: POTASSIUM CHLORIDE 20 MEQ POWDER PACKET GT ONE (09:00)
--- NOTE | 2018-11-25 09:18 | NUR ---
RT NOTE RECEIVED PT ORALLY INTUBATED 7.5 ETT SECURED AT 25CM AT THE LIP. PT TOLERATING VENT SETTINGS. PT IS SEDATED. SUCTIONED MODERATE AMT OF PINK TINGED SECRETIONS. CPT DONE ON THE LEFT SIDE TOLERATED IT WELL. VENT ALARMS SET AND AUDIBLE. AMBU BAG AT BEDSIDE. WILL CONTINUE TO MONITOR. PLACED PT ON SIMV MODE DUE TO MD WEANING ORDER, PER , PLACED BACK ON AC DUE TO XRAY RESULTS, WILL MONITOR CLOSELY.
--- NOTE | 2018-11-25 09:48 | NUR ---
received pt from shift superintendent, calmly sedated on diprivan at 15mcg, afib controlled, on the vent, L lungs congested, edema throughout, f/c good output, NG clamped due to bronchoscopy, restraints on, v/s stable, no pain, pt turned and repositioned.
[2018-11-25] MEDS ORDERED: LIDOCAINE 2% JEL 5 ML TUBE MC ONE ×2 (10:00→14:30)
[2018-11-25] MEDS: Potassium Chloride 10 MEQ in IV D5/ 0.9% NACL 1,000 ML IV PRN (13:22)
--- NOTE | 2018-11-25 15:32 | NUR ---
RT NOTE BRONCHOSPY DONE WITH MD, PT SARAI PROCEDURE WELL NO ADVERSE REACTION NOTED, PT STABBLE WILL CONTINUE TO MONITOR CLOSELY
--- NOTE | 2018-11-25 16:16 | NUR ---
pt is resting in the bed, sedated on Diprivan at 15mcg, A fib controlled, s/p bronchoscopy, tolerates well, v/s stable, no pain, pt cleaned, changed and repositioned q2hrs.
--- NOTE | 2018-11-25 19:30 | NUR ---
RN NOTES RECEIVED PATIENT SEDATED WITH DIPRIVAN. ORALLY INTUBATED WITH ETT 7.5 AND 25 CM AT LIP WITH VENT SETTING AC 16 TV 550 FIO2 40% PEEP5 WELL SATURATION 99%. TELE MONITOR REVEALS A-FIB CONTROLLED. NO PRESENT OF SEIZURES. ANASARCA. OGT INTACT, PATENCY CHECKED WITH JEVITY @ 35 ML.HR KEPT HOB ELEVATED. IV SITE ON MU MIDLINE RUNNING WITH DIPRIVAN @ 10 MCG/KG/MIN. AND D5NS + KCL 10 MEQ @ 50 ML/HR. C/D/I. KEPT PT CLEAN AND DRY. OFFLOADED EXT WITH PILLOWS. BILATERAL SOFT WRIST RESTRAINT KEPT IN PLACED CIRCULATION CHECKED.,SAFETY CHECKED. PT IS CLEANED AND DRY WILL CONTINUE TO MONITOR.
[2018-11-26] VITALS (57 sets, daily range): BP systolic 84–130; BP diastolic 50–102
[2018-11-26] MEDS: ACETYLCYSTEINE 10% SOLN 400 MG/4 ML VIAL NEB SCH ×3 (00:09→15:19)
[2018-11-26] MEDS: ALBUTEROL FS 2.5 MG/3 ML VIAL.NEB NEB SCH ×6 (00:09→19:46)
[2018-11-26] MEDS: PIPERACILLIN /TAZOBACTAM 3.375 G in IV D5W 100 ML IV SCH ×3 (01:26→17:28)
[2018-11-26 04:31] LABS: BASOPHILS % (AUTO) 0.6 % (0.0-2.0); HEMATOCRIT 43 % (33-45); HEMOGLOBIN 13.8 g/dL (11.5-14.8); LYMPHOCYTES # (AUTO) 0.4 /CMM (0.8-4.8); LYMPHOCYTES % (AUTO) 6.5 % (20.0-44.0); MEAN CORPUSCULAR HGB CONC 32 g/dl (31.0-36.0); MEAN CORPUSCULAR VOLUME 99 fL (82-100); MONOCYTES # (AUTO) 0.6 /CMM (0.1-1.30); MONOCYTES % (AUTO) 8.9 % (2.0-12.0); NEUTROPHILS # (AUTO) 5.1 /CMM (1.8-8.9); PLATELET COUNT (AUTO) 153 /CMM (150-450); RED BLOOD CELL COUNT(AUTO) 4.34 MIL/uL (4.0-5.2); WHITE BLOOD COUNT (AUTO) 6.4 K/uL (4.3-11.0)
[2018-11-26 04:41] LABS: CALCIUM, SERUM 7.9 mg/dL (8.5-10.1); CARBON DIOXIDE 31 mmol/L (21-32); CHLORIDE 103 mmol/L (98-107); CREATININE 1.1 mg/dL (0.6-1.3); GLUCOSE 121 mg/dL (74-106); MAGNESIUM 2.1 mg/dL (1.8-2.4); PHOSPHORUS 2.6 mg/dL (2.5-4.9); POTASSIUM 3.5 mmol/L (3.5-5.1); SODIUM SERUM 143 mmol/L (136-145); UREA NITROGEN, BLOOD 15 mg/dL (7-18)
[2018-11-26] MEDS: PROPOFOL 100 ML IV PRN ×2 (06:10→16:02)
--- NOTE | 2018-11-26 07:13 | NUR ---
RN NOTES PATIENT REMAINED ORALLY INTUBATED WITH ETT7.5 AND 25 CM AT LIP. VENT SETTING TOLERATED WELL. NO APPARENT DISTRESS WITH GOOD SATURATION. PT IS AOX1-2 ABLE TO NODS TO QUESTION WITHOUT SEDATION. DIPRIVAN CONTINUE TITRATED ORDERED FOR COMFORT. NO PRESSOR. F/D INTACT AND PATENT.BILATERAL WRIST RESTRAINT IN PLACED. CIRCULATION CHECKED. PT AFEBRILE. CLEANED AND DRY. ENDORSED CONTINUITY OF CARE TO AM NURSE.
--- NOTE | 2018-11-26 08:02 | NUR ---
PT RECEIVED IN ICU, ON MECHANICAL VENT W/ SETTINGS PER MD. VENT IN RED OUTLET, AMBUBAG AT BEDSIDE, VENT ALARMS CHECKED AND AUDIBLE. MEDS GIVEN INLINE PER MD ORDER. PT SX'ED AND LAVAGED TO MOD AMOUNTS OF THICK YELLOW, SOME BLOOD TINGED SECRETIONS, CPT DONE. ETT CLEAN, PATENT, SECURED W/ ANCHOFAST. NO RESP DISTRESS NOTED AT THIS TIME. PLAN IS TO CONTINUE CARE UNDER CURRENT MD ORDERS AND MONITOR FOR CHANGES. Addendum: 11/26/18 at 0809 by ILEANA HWANG RT Amended: Links added.
--- NOTE | 2018-11-26 08:13 | NUR ---
received pt from loan broker, calmly sedated on Diprivan at 10mcg, A fib controlled, intubated, L lung completely collapsed, pitting edema all extremities, f/c good output, GT to feeding, tolerates well, restraints on, v/s stable, no pain, pt turned and repositioned.
[2018-11-26] MEDS: PROSOURCE / PROSTAT (PYXIS) 30 ML UDC GT SCH ×2 (08:54→16:34)
[2018-11-26] MEDS: PHENYTOIN SODIUM IV 50 MG/ML VIAL IV SCH ×2 (08:54→20:34)
[2018-11-26] MEDS: NYSTATIN TOP POWDER 15 GM BOTTLE TP SCH ×2 (08:55→16:34)
[2018-11-26] MEDS: HEPARIN SODIUM, PORCINE 5000 UNITS/1 ML VIAL SQ SCH ×2 (08:55→20:34)
[2018-11-26] MEDS: PANTOPRAZOLE 40 MG VIAL IV SCH (08:55)
[2018-11-26 09:15] LABS: ABG BASE EXCESS 5.5 mmol/L; ABG OXYGEN SATURATION 94.6 % (92.0-98.5); ABG PCO2 44.6 mmHg (35.0-45.0); ABG PO2 77.9 mmHg (75.0-100.0); COHb 0.6 % (0.5-1.5); MetHb 0.5 % (0.0-1.5); O2Hb 93.6 % (94.0-97.0); PEEP,BG 5 cm H2O; SITE, ABG Right Radial; VENT MODE, BG AC 16 550 40% +5; VT, ABG 550 mL
[2018-11-26] MEDS: PANTOPRAZOLE 40 MG/PACK PACK GT SCH (10:20)
[2018-11-26] MEDS: VANCOMYCIN 1.25 GM in IV D5W 500 ML IV SCH (12:01)
[2018-11-26] MEDS: Potassium Chloride 10 MEQ in IV D5/ 0.9% NACL 1,000 ML IV PRN (12:17)
--- NOTE | 2018-11-26 16:18 | NUR ---
pt is resting in the bed, sedated on Diprivan at 10mcg, A fib controlled, tolerates feeding, f/c good urine output, v/s stable, no pain, pt cleaned, changed and repositioned q2hrs.
[2018-11-26] MEDS: JEVITY 1.2 CAL 1,000 ML BOTTLE GT PRN (16:35)
--- NOTE | 2018-11-26 19:30 | NUR ---
INCOME TAX ANALYST NOTE PT RECEIVED INTUBATED AND SEDATED. ETT 7.5 AND 25 AT THE LIP. ON MECH VENT WITH SETTINGS WELL TOLERATED. HOB ELEVATED AND ON ASPIRATION PRECAUTIONS. BREATHING UNLABORED. TELE- AFIB CONTROLLED AT 67. BILATERAL SOFT WRIST RESTRAINTS IN PLACE. ORAL FEEDING TUBE IN WITH POSITIVE PLACEMENT AND FEEDING WELL TOLERATED WITHOUT RESIDUALS NOTED. IV MU PICC PATENT WITH FLUIDS INFUSING. GARCIA CATHETER IN PLACE AND DRAINING BY GRAVITY. WILL CONTINUE TO MONITOR.
[2018-11-27] VITALS (49 sets, daily range): BP systolic 82–127; BP diastolic 42–70
[2018-11-27] MEDS: ACETYLCYSTEINE 10% SOLN 400 MG/4 ML VIAL NEB SCH ×3 (00:03→15:40)
[2018-11-27] MEDS: ALBUTEROL FS 2.5 MG/3 ML VIAL.NEB NEB SCH ×6 (00:03→19:59)
[2018-11-27] MEDS: PIPERACILLIN /TAZOBACTAM 3.375 G in IV D5W 100 ML IV SCH ×3 (01:36→18:30)
[2018-11-27] MEDS: IV NS 0.9% 250 ML IV PRN (01:37)
[2018-11-27] MEDS: PROPOFOL 100 ML IV PRN ×3 (02:36→22:56)
[2018-11-27 04:54] LABS: CALCIUM, SERUM 7.8 mg/dL (8.5-10.1); CARBON DIOXIDE 32 mmol/L (21-32); CHLORIDE 105 mmol/L (98-107); GLUCOSE 111 mg/dL (74-106); POTASSIUM 3.7 mmol/L (3.5-5.1); SODIUM SERUM 143 mmol/L (136-145); UREA NITROGEN, BLOOD 18 mg/dL (7-18)
--- NOTE | 2018-11-27 06:55 | NUR ---
SHAREPOINT SOLUTIONS ARCHITECT NOTE PT REMAINED STABLE DURING SHIFT. NO ACUTE DISTRESS NOTED. MECH VENT WELL TOLERATED. ALL NEEDS ATTENDED TO PROMPTLY. KEPT CLEAN AND DRY. SUCTIONED NEEDED. WILL ENDORSE TO NEXT SHIFT FOR CONTINUITY OF CARE.
--- NOTE | 2018-11-27 07:30 | NUR ---
INITIAL PT RECEIVED INTUBATED AND SEDATED. ETT 7.5 AND 25 AT THE LIP. ON MECH VENT WITH SETTINGS WELL TOLERATED. HOB ELEVATED AND ON ASPIRATION PRECAUTIONS. BREATHING UNLABORED. TELE- AFIB CONTROLLED AT 72. BILATERAL SOFT WRIST RESTRAINTS IN PLACE. ORAL FEEDING TUBE IN WITH POSITIVE PLACEMENT AND FEEDING WELL TOLERATED WITHOUT RESIDUALS NOTED. IV MU PICC PATENT WITH FLUIDS INFUSING. GARCIA CATHETER IN PLACE AND DRAINING BY GRAVITY. WILL CONTINUE TO MONITOR.
--- NOTE | 2018-11-27 07:36 | NUR ---
RT PT RECEIVED ORALLY INTUBATED WITH 7.5 ETT SECURED AT 25CM AT THE LIP LINE. PT IS ON THE VENT WITH NOTED SETTINGS. VENT ALARMS ARE SET AND AUDIBLE WITH BVM BY BEDSIDE. DEPARTMENT OF NATURAL RESOURCES OFFICER CUFF PRESSURE NOTED. VENT IS PLUGGED INTO RED OUTLET. SX'D MODERATE THICK PALE YELLOW SECRETIONS. NO RESPIRATORY DISTRESS NOTED AT THIS TIME, WILL CONTINUE TO MONITOR. Addendum: 11/27/18 at 1422 by MICHAEL FELICIANO RT Amended: Links added.
[2018-11-27] MEDS: Potassium Chloride 10 MEQ in IV D5/ 0.9% NACL 1,000 ML IV PRN (09:00)
[2018-11-27] MEDS: PANTOPRAZOLE 40 MG/PACK PACK GT SCH (09:00)
[2018-11-27] MEDS: PHENYTOIN SODIUM IV 50 MG/ML VIAL IV SCH ×2 (09:00→20:59)
[2018-11-27] MEDS: NYSTATIN TOP POWDER 15 GM BOTTLE TP SCH ×2 (09:24→17:58)
[2018-11-27] MEDS: PROSOURCE / PROSTAT (PYXIS) 30 ML UDC GT SCH ×2 (09:31→17:57)
[2018-11-27 10:51] LABS: ABG BASE EXCESS 4.7 mmol/L; ABG PCO2 47.7 mmHg (35.0-45.0); ABG PH 7.418 (7.350-7.450); ABG PO2 87.5 mmHg (75.0-100.0); AaDO2 142.8 mmHg; COHb 0.6 % (0.5-1.5); MetHb 0.4 % (0.0-1.5); PEEP,BG 5 cm H2O; SITE, ABG Right Radial; VT, ABG 550 mL
[2018-11-27] MEDS ORDERED: VANCOMYCIN 1.25 GM in IV D5W 500 ML IV SCH (12:00)
[2018-11-27] MEDS: FUROSEMIDE 20 MG/2 ML VIAL IV SCH (12:31)
[2018-11-27] MEDS: JEVITY 1.2 CAL 1,000 ML BOTTLE GT PRN (17:57)
--- NOTE | 2018-11-27 18:52 | NUR ---
CLOSING PT REMAINED STABLE DURING SHIFT. NO ACUTE DISTRESS NOTED. ON BIPAP AT 1530 WELL TOLERATED AFTER THORACENTESIS . ON ASPIRATION PRECAUTIONS. ALL NEEDS ATTENDED TO PROMPTLY. TUBE FEEDING INFUSING AND WELL TOLERATED. KEPT CLEAN AND DRY. SUCTIONED NEEDED. WILL ENDORSE TO PM SHIFT FOR CONTINUITY OF CARE.
--- NOTE | 2018-11-27 18:54 | NUR ---
AMENDMENT TO 1852 NOTE PT TOLERATED VENTILATOR SETTINGS WELL NOT ON BIPAP PT DID NOT HAVE A THORACENTESIS
--- NOTE | 2018-11-27 20:00 | NUR ---
RN INITIAL NOTES PT RECEIVED INTUBATED AND SEDATED. ETT 7.5 AND 25 AT THE LIP. ON MECH VENT WITH SETTINGS WELL TOLERATED. HOB ELEVATED AND ON ASPIRATION PRECAUTIONS. BREATHING UNLABORED. TELE- AFIB CONTROLLED AT 72. BILATERAL SOFT WRIST RESTRAINTS IN PLACE. ORAL FEEDING TUBE IN WITH POSITIVE PLACEMENT AND FEEDING WELL TOLERATED WITHOUT RESIDUALS NOTED. IV MU PICC PATENT. GARCIA CATHETER IN PLACE AND DRAINING BY GRAVITY. WILL CONTINUE TO MONITOR.
[2018-11-27] MEDS: Z GUARD REMEDY 2 OZ OINT TP PRN (23:01)
[2018-11-28] VITALS (81 sets, daily range): BP systolic 81–145; BP diastolic 42–77
[2018-11-28] MEDS: ALBUTEROL FS 2.5 MG/3 ML VIAL.NEB NEB SCH ×7 (00:07→23:18)
[2018-11-28] MEDS: ACETYLCYSTEINE 10% SOLN 400 MG/4 ML VIAL NEB SCH ×4 (00:07→23:18)
[2018-11-28] MEDS: PIPERACILLIN /TAZOBACTAM 3.375 G in IV D5W 100 ML IV SCH ×3 (01:48→17:00)
[2018-11-28 04:57] LABS: BASOPHILS # (AUTO) 0.1 /CMM (0.0-0.2); HEMATOCRIT 39 % (33-45); HEMOGLOBIN 12.7 g/dL (11.5-14.8); LYMPHOCYTES # (AUTO) 0.4 /CMM (0.8-4.8); LYMPHOCYTES % (AUTO) 7.4 % (20.0-44.0); MEAN CORPUSCULAR HGB CONC 33 g/dl (31.0-36.0); MEAN CORPUSCULAR VOLUME 98 fL (82-100); MONOCYTES # (AUTO) 0.7 /CMM (0.1-1.30); NEUTROPHILS # (AUTO) 4.1 /CMM (1.8-8.9); NEUTROPHILS % (AUTO) 75.6 % (43.0-81.0); PLATELET COUNT (AUTO) 199 /CMM (150-450); RED BLOOD CELL COUNT(AUTO) 3.94 MIL/uL (4.0-5.2); WHITE BLOOD COUNT (AUTO) 5.5 K/uL (4.3-11.0)
[2018-11-28 05:05] LABS: CALCIUM, SERUM 7.8 mg/dL (8.5-10.1); CARBON DIOXIDE 32 mmol/L (21-32); CHLORIDE 106 mmol/L (98-107); CREATININE 0.9 mg/dL (0.6-1.3); GLUCOSE 109 mg/dL (74-106); POTASSIUM 3.7 mmol/L (3.5-5.1); SODIUM SERUM 144 mmol/L (136-145); UREA NITROGEN, BLOOD 20 mg/dL (7-18)
--- NOTE | 2018-11-28 06:29 | NUR ---
RN CLOSING NOTE PT REMAINED STABLE DURING SHIFT. NO ACUTE DISTRESS NOTED. MECH VENT WELL TOLERATED. ALL NEEDS ATTENDED. KEPT CLEAN AND DRY. SUCTIONED NEEDED. WILL ENDORSE TO AM SHIFT FOR CONTINUITY OF CARE.
--- NOTE | 2018-11-28 07:30 | NUR ---
RECEIVED REPORT ON PATIENT. INTUBATED 7.5 TOLERATING VENT SETTINGS NO SOB NOTED. GARCIA CATH TO GRAVITY MW URINE NOTED. IV SITE C/D/I/P BLOOD RETURN PRESENT. SEDATED ON DIPRIVAN AWAKE TO LIGHT TOUCH. SAFETY, SKIN, ASPIRATION, SEIZURE PRECAUTIONS IN PLACE AND WILL MONITOR. Addendum: 11/28/18 at 1910 by JEREMY OLIVERA RN OGT IN PLACE WITH JEVITY 1.2 AT 65 ML/HOUR 20ML RESIDUAL
[2018-11-28] MEDS: PROPOFOL 100 ML IV PRN ×3 (07:52→21:36)
[2018-11-28] MEDS: PANTOPRAZOLE 40 MG/PACK PACK GT SCH (08:54)
[2018-11-28] MEDS: Z GUARD REMEDY 2 OZ OINT TP PRN ×2 (08:54→16:58)
[2018-11-28] MEDS: FUROSEMIDE 20 MG/2 ML VIAL IV SCH ×2 (08:54→17:03)
[2018-11-28] MEDS: PHENYTOIN SODIUM IV 50 MG/ML VIAL IV SCH ×2 (08:54→20:21)
[2018-11-28] MEDS: PROSOURCE / PROSTAT (PYXIS) 30 ML UDC GT SCH ×2 (08:54→16:57)
[2018-11-28 08:55] LABS: ABG OXYGEN SATURATION 97.2 % (92.0-98.5); ABG PCO2 41.3 mmHg (35.0-45.0); AaDO2 140.7 mmHg; COHb 0.4 % (0.5-1.5); MetHb 0.5 % (0.0-1.5); O2Hb 96.3 % (94.0-97.0); SITE, ABG Right Radial
[2018-11-28] MEDS: NYSTATIN TOP POWDER 15 GM BOTTLE TP SCH ×2 (08:55→19:24)
--- NOTE | 2018-11-28 09:50 | NUR ---
DR GARCIA AT BEDSIDE. NO NEW ORDERS
--- NOTE | 2018-11-28 10:00 | NUR ---
DR CURTIS AT BEDSIDE NO NEW ORDERS
--- NOTE | 2018-11-28 11:35 | NUR ---
DR CORNEJO AT BEDSIDE SPEAKING WITH DAUGHTER. NO NEW ORDERS AT THIS TIME.
[2018-11-28] MEDS: JEVITY 1.2 CAL 1,000 ML BOTTLE GT PRN (16:57)
[2018-11-28] MEDS: NOREPINEPHRINE 8 MG in IV D5W 500 ML IV PRN (17:17)
[2018-11-28] MEDS: IV NS 0.9% 250 ML IV PRN (18:20)
--- NOTE | 2018-11-28 18:54 | NUR ---
ALL DUE MEDS GIVEN AND ALL NEEDS MET. PATIENT TOLERATING TUBE FEEDING WITH MINIMAL RESIDUAL. IV SITE C/D/I/P WITH GOOD BLOOD RETURN. TOLERATING VENTILATOR. BP STABLE WITH LEVO 1MCG/MIN AND LIGHTLY SEDATED ON 15MCG/KG/MIN. GARCIA CATH CLEAN AND DRAINING TO GRAVITY. SON AND DAUGHTER AT BEDSIDE ALL QUESTIONS ANSWERED. SAFETY, SKIN, ASPIRATION, AND SEIZURE PRECAUTIONS IN PLACE AND MONITORED THROUGHOUT DAY. CARE WILL BE ENDORSED TO RN FOR BECKIE
--- NOTE | 2018-11-28 19:40 | NUR ---
RT PT RECEIVED ORALLY INTUBATED WITH 7.5 ETT 25CM AND 25CM ON THE LIP ON [facility] VENT ON CHARTED SETTINGS. NO SIGNS OF RESP DISTRESS/SOB NOTED AT THIS TIME. AIRWAY PATENT AND SECURED. PT SUCTIONED. ALARMS SET AND AUDIBLE. AMBUBAG AT BEDSIDE. VENT CONNECTED TO RED OUTLET. WILL CONT. TO MONITOR. Addendum: 11/28/18 at 2024 by KASSIE GIPSON RT Amended: Links added.
--- NOTE | 2018-11-28 20:00 | NUR ---
ROCK CRUSHER - NOTES - RECEIVED REPORT ON PATIENT. INTUBATED 7.02/05 TOLERATING VENT SETTINGS NO SOB NOTED. GARCIA CATH TO GRAVITY WM URINE NOTED. OGT IN PLACE WITH JEVITY 1.2 AT 65 ML/HR, 120 ML RESIDUALS NOTED, WILL CONTINUE TO MONITOR. IV SITE C/D/I/P BLOOD RETURN PRESENT. SEDATED ON DIPRIVAN AWAKE TO LIGHT TOUCH. SAFETY, SKIN, ASPIRATION, SEIZURE PRECAUTIONS IN PLACE AND WILL MONITOR.
[2018-11-29] VITALS (106 sets, daily range): BP systolic 80–132; BP diastolic 43–84
[2018-11-29] MEDS: PIPERACILLIN /TAZOBACTAM 3.375 G in IV D5W 100 ML IV SCH ×3 (01:11→17:01)
[2018-11-29] MEDS: ALBUTEROL FS 2.5 MG/3 ML VIAL.NEB NEB SCH ×4 (03:06→15:50)
[2018-11-29] MEDS: PROPOFOL 100 ML IV PRN ×3 (03:10→14:59)
[2018-11-29 05:15] LABS: BASOPHILS # (AUTO) 0.1 /CMM (0.0-0.2); BASOPHILS % (AUTO) 1.2 % (0.0-2.0); EOSINOPHILS % (AUTO) 5.2 % (0.0-6.0); HEMATOCRIT 42 % (33-45); HEMOGLOBIN 13.3 g/dL (11.5-14.8); LYMPHOCYTES # (AUTO) 0.5 /CMM (0.8-4.8); LYMPHOCYTES % (AUTO) 8.6 % (20.0-44.0); MEAN CORPUSCULAR HGB CONC 32 g/dl (31.0-36.0); MEAN CORPUSCULAR VOLUME 99 fL (82-100); MONOCYTES # (AUTO) 0.6 /CMM (0.1-1.30); MONOCYTES % (AUTO) 10.8 % (2.0-12.0); NEUTROPHILS % (AUTO) 74.2 % (43.0-81.0); PLATELET COUNT (AUTO) 251 /CMM (150-450); RED BLOOD CELL COUNT(AUTO) 4.18 MIL/uL (4.0-5.2); WHITE BLOOD COUNT (AUTO) 5.4 K/uL (4.3-11.0)
[2018-11-29 05:46] LABS: CALCIUM, SERUM 7.9 mg/dL (8.5-10.1); CARBON DIOXIDE 32 mmol/L (21-32); CHLORIDE 105 mmol/L (98-107); GLUCOSE 113 mg/dL (74-106); POTASSIUM 3.7 mmol/L (3.5-5.1); SODIUM SERUM 143 mmol/L (136-145); UREA NITROGEN, BLOOD 23 mg/dL (7-18)
--- NOTE | 2018-11-29 07:00 | NUR ---
RECEIVED REPORT ON PATIENT. INTUBATED 7.02/05 TOLERATING VENT SETTINGS NO SOB NOTED. GARCIA CATH TO GRAVITY WM URINE NOTED. IV SITE C/D/I/P BLOOD RETURN PRESENT. SEDATED ON DIPRIVAN AWAKE TO LIGHT TOUCH. OGT IN PLACE WITH JEVITY 1.2 AT 65ML/HOUR WITH MAX RESIDUAL 120ML. AT THIS TIME RESIDUALS 20 AND WILL MONITOR. PATIENT BRADYCARDIC LOWEST 38 LAST NIGHT WILL F/U WITH MD. SAFETY, SKIN, ASPIRATION, SEIZURE PRECAUTIONS IN PLACE AND WILL MONITOR.
[2018-11-29] MEDS: ACETYLCYSTEINE 10% SOLN 400 MG/4 ML VIAL NEB SCH ×2 (07:35→15:50)
[2018-11-29] MEDS: FUROSEMIDE 20 MG/2 ML VIAL IV SCH ×2 (08:20→16:50)
[2018-11-29] MEDS: PHENYTOIN SODIUM IV 50 MG/ML VIAL IV SCH (08:20)
[2018-11-29] MEDS: PANTOPRAZOLE 40 MG/PACK PACK GT SCH (08:20)
[2018-11-29] MEDS: Z GUARD REMEDY 2 OZ OINT TP PRN ×2 (08:20→17:02)
[2018-11-29] MEDS: PROSOURCE / PROSTAT (PYXIS) 30 ML UDC GT SCH ×2 (08:21→16:49)
[2018-11-29] MEDS: NYSTATIN TOP POWDER 15 GM BOTTLE TP SCH ×2 (08:31→17:17)
--- NOTE | 2018-11-29 08:46 | NUR ---
DR CORNEJO AT BEDSIDE. NOTIFIED PATIENT AT TIMES BRADYCARDIC HIGH 30'S AND CONTINUES ON LEVO. NO NEW ORDERS.
[2018-11-29 09:08] LABS: ABG BASE EXCESS 4.1 mmol/L; ABG OXYGEN SATURATION 97.5 % (92.0-98.5); ABG PCO2 43.6 mmHg (35.0-45.0); ABG PH 7.439 (7.350-7.450); AaDO2 134.1 mmHg; COHb 0.8 % (0.5-1.5); MetHb 0.4 % (0.0-1.5); O2Hb 96.3 % (94.0-97.0); SITE, ABG Left Radial
--- NOTE | 2018-11-29 10:05 | NUR ---
RT PT REC'D ON MECHANICAL VENT ON ORDERED SETTINGS. NO SOB, NO RESPIRATORY DISTRESS NOTED AT THIS TIME. TRACH TUBE PATENT, SECURE AND IN PLACE. BVM BY BEDSIDE. VENT PLUGGED IN RED OUTLET. VENT ALARMS ON AND AUDIBLE. PT SUCTIONED WITH SMALL AMOUNT OF THIN CLEAR SECTIONS. ROUTINE ABG DONE. WILL CONTINUE TO MONITOR. Addendum: 11/29/18 at 1006 by PINKY BRAR RT Amended: Links added.
[2018-11-29] MEDS ORDERED: ENOXAPARIN SODIUM 40 MG/0.4 ML DISP.SYRIN SQ SCH (11:30)
--- NOTE | 2018-11-29 16:39 | NUR ---
DR CORNEJO AT BEDSIDE SPEAKING WITH SON
[2018-11-29] MEDS: IV NS 0.9% 250 ML IV PRN (16:50)
[2018-11-29] MEDS: JEVITY 1.2 CAL 1,000 ML BOTTLE GT PRN (16:50)
[2018-11-29] MEDS: NOREPINEPHRINE 8 MG in IV D5W 500 ML IV PRN (17:14)
--- NOTE | 2018-11-29 18:51 | NUR ---
patient son at bedside. per son discussion with family members they are wishing for patient to be on comfort measures and to be terminally extubated tonight after all her family is at bedside. spoke with dr tobin and per please per patient son and family request change code status to comfort measures and dc all medications. per dr tobin please order a morphine gtt to start at 2mg/hour and titrate if needed up to 20mg/hour for a respiratory rate goal of 10. titrate 1mg every 15 minutes. once morphine gtt started ok to terminally extubate patient 30min-[address] nasal cannula
[2018-11-29] MEDS ORDERED: DC PROPOFOL WHEN EXTUBATED XX PRN (19:30)
--- NOTE | 2018-11-29 20:45 | NUR ---
pt placed on morphine drip per family request and dr. Forest pandya, will extubate after 30 mins, family at bedside, will continue to monitor
--- NOTE | 2018-11-29 21:20 | NUR ---
PT EXTUBATED WITH RT, PT TOLERATED WELL, PT IS ON 4L NC, 02SAT 92%
--- NOTE | 2018-11-29 22:25 | NUR ---
PER DR CORNEJO, TRANSFER TO MED SURG FOR COMFORT MEASURES, PER DR CORNEJO STOP IV MORPHINE GTT AND GIVE MORPHINE IV PUSH. PT IS AWAKE AND ALERT, FAMILY AT BEDSIDE, NOT IN DISTRESS O2SAT 94%. [place] [facility] [place]
[2018-11-29] MEDS: PHENYTOIN EXTENDED RELEASE 100 MG CAPSULE PO SCH ×2 (22:30→22:41)
[2018-11-29] MEDS ORDERED: ONDANSETRON HCL/PF 4 MG/2 ML VIAL IV PRN (22:30)
[2018-11-29] MEDS: MORPHINE SULFATE INJ 2 MG/ML DISP.SYRIN IV PRN (22:42)
--- NOTE | 2018-11-29 23:39 | NUR ---
REPORT GIVEN TO 3W NURSE WILL TRANSFER TO 317-2 Addendum: 11/30/18 at 0024 by RASHARD GILL RN CORRECTION: BED [id number]
[2018-11-30] VITALS: BP 123/62
--- NOTE | 2018-11-30 01:33 | NUR ---
MS/RN RECEIVED PATIENT AT AROUND 0115 FROM ICU VIA BED, PATIENT WAS AWAKE, ALERT, COMFORTABLE, NO C/O PAIN, NO SIGNS OF DISTRESS NOTED, COMFORT MEASURES ONLY, WILL MONITOR.
[2018-11-30 02:38] VITALS: BP 114/60
--- NOTE | 2018-11-30 06:19 | NUR ---
MS/RN MORNING CARE WAS DONE, GOOD SKIN CARE DONE WITH NYSTATIN POWDER TO EXCORIATIONS IN ABD/BREAST FOLDS, TOTAL LINEN CHANGE RENDERED, REPOSITIONED TO COMFORT, ALL NEEDS ATTENDED AT THIS TIME, HAS BEEN SUCTIONED ORALLY FOR ORAL SECRETIONS. WILL CONTINUE TO MONITOR.
[2018-11-30 08:00] VITALS: BP 125/69
--- NOTE | 2018-11-30 08:48 | NUR ---
MS/RN Medications Patient comfortable at this time, refused any pain medications.
--- NOTE | 2018-11-30 10:14 | NUR ---
MS/RN Swallow evaluation Bedside swallow evaluation at bedside - able to have ice chips and sips of water. Patient unwilling to try puree diet at this time, will reassess tomorrow.
--- NOTE | 2018-11-30 10:18 | NUR ---
MS/RN S/B Dr Garg Seen by Dr Garg - no code status, continue with current seizure medications. Swallow evaluation at bedside, maintain patient's comfort.
--- NOTE | 2018-11-30 10:19 | NUR ---
MS/RN S/B Dr Tsai Seen by Dr Tsai - no new orders.
--- NOTE | 2018-11-30 12:41 | NUR ---
MS/RN Turn and reposition Patient turned and repositioned as condition allows, regular mouth care offered. Assisted with sips of water and ice chips.
[2018-11-30 16:00] VITALS: BP 110/60
--- NOTE | 2018-11-30 16:00 | NUR ---
MS/RN Afternoon care Full bed bath given to patient, wound care carried out. BM X1.
--- NOTE | 2018-11-30 18:11 | NUR ---
MS/RN End note Remains in stable condition, no distress or discomfort observed throughout the shift. Wound care carried out, skin kept clean and dry, heels off loaded. Zgard used for cynthia area to prevent skin breakdown. Patient offered ice chips and sips of water at regular intervals. Mouth care provided. Safety measures in place, bed in low setting, side rails X3 in upright position. Call light within reach, will endorse to security shift supervisor.
--- NOTE | 2018-11-30 19:30 | NUR ---
MS/RN RECEIVE PATIENT APPEAR SLEEPING, APPEAR COMFORTABLE, BREATHING EVEN AND UNLABORED, HOB ELEVATED ABOUT 30 DEGREES, CALL LIGHT IN REACH. WILL MONITOR.
[2018-11-30 20:00] VITALS: BP 110/65
--- NOTE | 2018-11-30 20:21 | NUR ---
MS/RN OBTAINED ORDER FROM DR. CORNEJO TO CHANGE THE DILANTIN 300 MG PO TO IV. CARRIED OUT.
--- NOTE | 2018-11-30 22:00 | NUR ---
MS/RN PATIENT IS AWAKE, ALERT, ORIENTED, EXPLAINED ABOUT ADMINISTRATION OF DILANTIN IV, VERBALIZED UNDERSTANDING.
[2018-11-30] MEDS: PHENYTOIN SODIUM IV 50 MG/ML VIAL IV SCH (22:08)
--- NOTE | 2018-11-30 23:57 | NUR ---
MS/RN PATIENT IS SLEEPING AT THIS TIME, AROUSABLE, APPEAR COMFORTABLE, NO SIGNS OF DISTRESS NOTED, CALL LIGHT IN REACH. WILL CONTINUE TO MONITOR.
--- NOTE | 2018-12-01 04:31 | NUR ---
MS/RN PATIENT IS AWAKE, ALERT, COMFORTABLE, NO DISTRESS NOTED, MORNING CARE WAS DONE, TOTAL LINEN CHANGE RENDERED, GOOD SKIN CARE DONE, REPOSITIONED TO COMFORT. WILL CONTINUE TO MONITOR.
--- NOTE | 2018-12-01 05:52 | NUR ---
MS/RN PATIENT IS AWAKE, OBTAINED BLOOD ASEPTICALLY FROM PICC LINE FOR TODAY'S LAB WORKS.
--- NOTE | 2018-12-01 06:27 | NUR ---
MS/RN PATIENT IS SLEEPING AT THIS TIME, APPEAR COMFORTABLE, BREATHING EVEN AND UNLABORED, CALL LIGHT IN REACH. ALL NEEDS ATTENDED AT THIS TIME, WILL CONTINUE TO MONITOR.
[2018-12-01 06:32] LABS: BASOPHILS # (AUTO) 0.1 /CMM (0.0-0.2); BASOPHILS % (AUTO) 1.2 % (0.0-2.0); EOSINOPHILS % (AUTO) 2.7 % (0.0-6.0); HEMATOCRIT 40 % (33-45); HEMOGLOBIN 12.9 g/dL (11.5-14.8); LYMPHOCYTES # (AUTO) 0.3 /CMM (0.8-4.8); LYMPHOCYTES % (AUTO) 6.2 % (20.0-44.0); MEAN CORPUSCULAR HGB CONC 32 g/dl (31.0-36.0); MEAN CORPUSCULAR VOLUME 100 fL (82-100); MONOCYTES # (AUTO) 0.5 /CMM (0.1-1.30); MONOCYTES % (AUTO) 8.5 % (2.0-12.0); NEUTROPHILS # (AUTO) 4.3 /CMM (1.8-8.9); NEUTROPHILS % (AUTO) 81.4 % (43.0-81.0); PLATELET COUNT (AUTO) 265 /CMM (150-450); RED BLOOD CELL COUNT(AUTO) 4.03 MIL/uL (4.0-5.2); WHITE BLOOD COUNT (AUTO) 5.3 K/uL (4.3-11.0)
[2018-12-01 06:49] LABS: CALCIUM, SERUM 8.9 mg/dL (8.5-10.1); CARBON DIOXIDE 31 mmol/L (21-32); CHLORIDE 107 mmol/L (98-107); CREATININE 0.8 mg/dL (0.6-1.3); GLUCOSE 76 mg/dL (74-106); POTASSIUM 3.9 mmol/L (3.5-5.1); SODIUM SERUM 144 mmol/L (136-145); UREA NITROGEN, BLOOD 22 mg/dL (7-18)
--- NOTE | 2018-12-01 07:30 | NUR ---
MS RN OPENING NOTES PATIENT RECEIVED AWAKE IN BED AOX3. PATIENT ABLE TO VERBALIZE NEEDS. PATIENT NPO STATUS MAINTAINED. BREATHING EVEN AND UNLABORED AT 4 LI. O2 THERAPY VIA NASAL CANULA. PATIENT DENIES PAIN OR DISCOMFORT AT THIS TIME. IV PICC LINE MU TLC PATENT, FLUSHING WELL. GARCIA CATHETER PATENT AND DRAINING WELL. LINENS CLEAN AND DRY. SAFETY PRECAUTIONS IN PLACE. BED IS AT THE LOWEST POSITION AND LOCKED, SR UP X2. CALL LIGHT WITHIN REACH. WILL CONTINUE TO MONITOR AND PROVIDE COMFORT MEASURES. Addendum: 12/01/18 at 1223 by KAILASH ROCK RN MS RN OPENING NOTES PATIENT RECEIVED AWAKE IN BED AOX2. PATIENT ABLE TO VERBALIZE NEEDS. PATIENT NPO STATUS MAINTAINED. BREATHING EVEN AND UNLABORED AT 3.5 LI. O2 THERAPY VIA NASAL CANULA. PATIENT DENIES PAIN OR DISCOMFORT AT THIS TIME. IV PICC LINE MU TLC PATENT, FLUSHING WELL. GARCIA CATHETER PATENT AND DRAINING WELL. LINENS CLEAN AND DRY. SAFETY PRECAUTIONS IN PLACE. BED IS AT THE LOWEST POSITION AND LOCKED, SR UP X2. CALL LIGHT WITHIN REACH. WILL CONTINUE TO MONITOR AND PROVIDE COMFORT MEASURES.
[2018-12-01 08:00] VITALS: BP 95/63
[2018-12-01 08:32] LABS: PHENYTOIN (DILANTIN) 8.6 ug/ml (10.0-20.0)
[2018-12-01] MEDS: MORPHINE SULFATE INJ 2 MG/ML DISP.SYRIN IV PRN ×2 (08:52→11:29)
[2018-12-01 16:00] VITALS: BP 112/54
--- NOTE | 2018-12-01 18:55 | NUR ---
MS RN CLOSING NOTES PATIENT SLEEPING COMFORTABLY IN BED. PATIENT ABLE TO VERBALIZE NEEDS THROUGHOUT SHIFT, ALL NEEDS MET. BREATHING EVEN AND UNLABORED AT 3.5 LI. O2 THERAPY VIA NASAL CANULA. PATIENT DENIES PAIN OR DISCOMFORT AT THIS TIME. IV PICC LINE MU TLC PATENT, FLUSHING WELL. GARCIA CATHETER PATENT AND DRAINING WELL. PATIENT TOLERATED MECHANICAL SOFT DIET WELL. LINENS CLEAN AND DRY, PATIENT REPOSITIONED EVERY [address]RS[address] SAFETY PRECAUTIONS IN PLACE. BED IS AT THE LOWEST POSITION AND LOCKED, SR UP X2. CALL LIGHT WITHIN REACH. WILL ENDORSE TO ONCOMING RN FOR CONTINUITY OF CARE.
--- NOTE | 2018-12-01 19:30 | NUR ---
RN MS OPENING NOTES RECEIVED PATIENT IN BED AWAKE, ALERT AND ORIENTED X2, VERBALLY RESPONSIVE, ABLE TO MAKE NEEDS KNOWN. BREATHING EVEN AND UNLABORED. NO SOB NOTED ON 3.5L OXYGEN VIA NC. NO COMPLAINTS OF PAIN OR DISCOMFORT AT THE MOMENT. NO FACIAL GRIMACING. PICC LINE ON RIGHT UPPER ARM INTACT AND PATENT. SKIN DRY AND WARM TO TOUCH. AFEBRILE. GARCIA CATH INTACT AND DRAINING. ALL OTHER NEEDS ATTENDED TO. ON COMFORT MEASURES ONLY. SAFETY MEASURES IN PLACE. CALL LIGHT WITHIN REACH. WILL CONTINUE TO MONITOR.
[2018-12-01 20:00] VITALS: BP 106/57
[2018-12-01] MEDS: PHENYTOIN SODIUM IV 50 MG/ML VIAL IV SCH (21:30)
[2018-12-02 06:30] LABS: BASOPHILS # (AUTO) 0.1 /CMM (0.0-0.2); EOSINOPHILS % (AUTO) 1.9 % (0.0-6.0); HEMATOCRIT 42 % (33-45); HEMOGLOBIN 13.6 g/dL (11.5-14.8); LYMPHOCYTES # (AUTO) 0.4 /CMM (0.8-4.8); LYMPHOCYTES % (AUTO) 7.7 % (20.0-44.0); MEAN CORPUSCULAR HGB CONC 32 g/dl (31.0-36.0); MEAN CORPUSCULAR VOLUME 100 fL (82-100); MONOCYTES # (AUTO) 0.4 /CMM (0.1-1.30); MONOCYTES % (AUTO) 7.7 % (2.0-12.0); NEUTROPHILS # (AUTO) 4.6 /CMM (1.8-8.9); NEUTROPHILS % (AUTO) 81.7 % (43.0-81.0); PLATELET COUNT (AUTO) 296 /CMM (150-450); RED BLOOD CELL COUNT(AUTO) 4.21 MIL/uL (4.0-5.2); WHITE BLOOD COUNT (AUTO) 5.6 K/uL (4.3-11.0)
--- NOTE | 2018-12-02 06:30 | NUR ---
RN MS CLOSING NOTES PATIENT RESTING IN BED. NO ACUTE CHANGES THROUGHOUT SHIFT. BREATHING EVEN AND UNLABORED. NO SOB NOTED ON 3.5L OXYGEN VIA NC. NO COMPLAINTS OF PAIN OR DISCOMFORT. NO FACIAL GRIMACING. PICC LINE ON RIGHT UPPER ARM INTACT AND PATENT. SKIN DRY AND WARM TO TOUCH. AFEBRILE. GARCIA CATH INTACT AND DRAINING. ALL OTHER NEEDS ATTENDED TO. KEPT CLEAN DRY AND COMFORTABLE. ON COMFORT MEASURES. SAFETY MEASURES IN PLACE. CALL LIGHT WITHIN REACH. WILL ENDORSE TO ONCOMING NURSE FOR BECKIE.
[2018-12-02 06:48] LABS: CALCIUM, SERUM 9.1 mg/dL (8.5-10.1); CARBON DIOXIDE 32 mmol/L (21-32); CHLORIDE 107 mmol/L (98-107); CREATININE 0.7 mg/dL (0.6-1.3); GLUCOSE 78 mg/dL (74-106); POTASSIUM 4.5 mmol/L (3.5-5.1); SODIUM SERUM 145 mmol/L (136-145); UREA NITROGEN, BLOOD 19 mg/dL (7-18)
--- NOTE | 2018-12-02 07:20 | NUR ---
RN OPENING NOTE PT WAS RECEIVED IN BED AT LOWEST AND LOCKED POSITION WITH SIDE RAILS UPX2, A/O X2 RESTING COMFORTABLY IN BED, NO S/S OF PAIN OR DISTRESS NOTED AT THIS TIME, BREATHING EVEN AND UNLABORED ON 3.5L VIA NC, NOTED TO HAVE GARCIA IN PLACE, MU PICC IS PATENT AND INTACT, SAFETY PRECAUTIONS IN PLACE, CALL LIGHT WITHIN REACH, WILL MONITOR ACCORDINGLY
[2018-12-02 08:00] VITALS: BP 104/59
[2018-12-02] MEDS: MORPHINE SULFATE INJ 2 MG/ML DISP.SYRIN IV PRN (12:24)
[2018-12-02 16:47] VITALS: BP 103/54
--- NOTE | 2018-12-02 18:12 | NUR ---
RN CLOSING NOTE PT IN BED AT LOWEST AND LOCKED POSITION WITH SIDE RAILS UPX2, A/O X2 RESTING COMFORTABLY IN BED, NO COMPLAINTS OF ANY PAIN OR DISTRESS, BREATHING EVEN AND UNLABORED ON 3.5L VIA NC, GARCIA IN PLACE WITH 250 CC OUT, MU PICC IS PATENT AND INTACT, PT HAS NOT HAD ANY APPETITE AND NOT EATEN TODAY EXCEPT FOR A LITTLE BIT IN THE AM, SAFETY PRECAUTIONS IN PLACE, CALL LIGHT WITHIN REACH, WILL ENDORSE TO PATTERN DRAFTER FOR BECKIE.
[2018-12-02 20:00] VITALS: BP_SYST 111; BP_SYST 116; BP_DIAS 68
[2018-12-02] MEDS ORDERED: PHENYTOIN SODIUM IV 50 MG/ML VIAL IV SCH (22:00)
[2018-12-02] MEDS ORDERED: PHENYTOIN EXTENDED RELEASE 100 MG CAPSULE PO SCH (22:00)
--- NOTE | 2018-12-03 07:01 | NUR ---
RN CLOSING NOTES PATIENT IS ASLEEP IN BED, EASILY AWAKEN WITH VERBAL STIMULI. NO SIGNS OF RESPIRATORY DISTRESS OR SHORTNESS OF BREATH. BREATHING EVEN AND UNLABORED ON 3.5 VIA NC, GARCIA CATH IN PLACE WITH 180 CC OUT, MU PICC IS PATENT AND INTACT. SAFETY PRECAUTIONS IMPLEMENTED, CALL LIGHT WITHIN REACH. WILL ENDORSE TO AM SHIFT.
[2018-12-03 07:52] LABS: PHENYTOIN (DILANTIN) 9.2 ug/ml (10.0-20.0)
[2018-12-03 07:53] LABS: CARBON DIOXIDE 30 mmol/L (21-32); CHLORIDE 105 mmol/L (98-107); CREATININE 0.7 mg/dL (0.6-1.3); GLUCOSE 65 mg/dL (74-106); POTASSIUM 4.7 mmol/L (3.5-5.1); SODIUM SERUM 144 mmol/L (136-145); UREA NITROGEN, BLOOD 16 mg/dL (7-18)
[2018-12-03 08:00] VITALS: BP 128/74
[2018-12-03] MEDS ORDERED: PHENYTOIN EXTENDED RELEASE 100 MG CAPSULE PO SCH (09:00)
[2018-12-03] MEDS ORDERED: PHEN100C4 PO (09:13)
--- NOTE | 2018-12-03 13:39 | NUR ---
DISCHARGE NOTE PT WAS D/C AT THIS TIME TO [facility] WHERE REPORT WAS GIVEN TO ASHLEY. ALL D/C PAPERWORK,EXITCARE,BELONGINGS LIST WERE SIGNED, DISCUSSED, AND HANDED TO THE PATIENT AND EMT CREW. ALL SKIN WOUNDS WERE DOCUMENTED AND PLACED IN THE CHART. GARCIA WAS REMOVED AND PATIENT VOIDED. IV AND ID BAND WERE REMOVED. ALL NEEDS WERE ATTENDED TO DURING HER STAY. PT LEFT AT THIS TIME WITH EMT WITH ETA OF 15-30 MIN TO [facility].
== END 2018-12-03 14:00 | DRG 870 ==
LOC: ER 08:13 → TELE-TD 09:57 → ICU 16:46 → MED 11-30 01:04
PROVIDERS: ADMIT Internal Medicine; ATTEND Internal Medicine
PROC: 02HV33Z Insertion of Infusion Device into Superior Vena Cava, Percutaneous Approach (ICD-10-PCS; 2018-11-19)
PROC: B548ZZA Ultrasonography of Superior Vena Cava, Guidance (ICD-10-PCS; 2018-11-19)
PROC: 5A1955Z Respiratory Ventilation, Greater than 96 Consecutive Hours (ICD-10-PCS; principal; 2018-11-20)
PROC: 0BH17EZ Insertion of Endotracheal Airway into Trachea, Via Natural or Artificial Opening (ICD-10-PCS; 2018-11-20)
PROC: 0BJ08ZZ Inspection of Tracheobronchial Tree, Via Natural or Artificial Opening Endoscopic (ICD-10-PCS; 2018-11-23)
PROC: 0BJ08ZZ Inspection of Tracheobronchial Tree, Via Natural or Artificial Opening Endoscopic (ICD-10-PCS; 2018-11-25)
DX: A41.9 Sepsis, unspecified organism (principal); J69.0 Pneumonitis due to inhalation of food and vomit; J96.00 Acute respiratory failure, unspecified whether with hypoxia or hypercapnia; R65.21 Severe sepsis with septic shock; N17.0 Acute kidney failure with tubular necrosis; I50.32 Chronic diastolic (congestive) heart failure; J98.11 Atelectasis; Z68.43 Body mass index [BMI] 50.0-59.9, adult; E87.3 Alkalosis; G40.901 Epilepsy, unspecified, not intractable, with status epilepticus; I48.2 Chronic atrial fibrillation; I27.20 Pulmonary hypertension, unspecified; E83.39 Other disorders of phosphorus metabolism; E83.42 Hypomagnesemia; E86.0 Dehydration; E87.6 Hypokalemia; E78.5 Hyperlipidemia, unspecified; Z85.528 Personal history of other malignant neoplasm of kidney; Z90.5 Acquired absence of kidney; L30.4 Erythema intertrigo; G47.30 Sleep apnea, unspecified; K42.9 Umbilical hernia without obstruction or gangrene; L98.8 Other specified disorders of the skin and subcutaneous tissue; M06.9 Rheumatoid arthritis, unspecified; Z66 Do not resuscitate; E66.01 Morbid (severe) obesity due to excess calories; I11.0 Hypertensive heart disease with heart failure
CPT/HCPCS: 31622; 31623; 31720; 36415; 36569; 36600; 70450-TC; 71045-TC; 71250-TC; 76604-TC; 80048-TC; 80053-TC; 80076-TC; 80185-TC; 80202-TC; 82803-TC; 82962-TC; 83605-TC; 83735-TC; 84100-TC; 84443-TC; 84484-TC; 85025-TC; 85730-TC; 87040-TC; 87070-TC; 87081-TC; 92526; 92611-TC; 93307-TC; 94002-TC; 94003-TC; 94668-TC; 94760-TC; 95819-TC; 99082-TC; A4217; A6402; A6403; C1751; C9113; G0378; J1165; J1644; J1650; J1940; J1953; J2060; J2270; J2274; J2543; J3370; J3475; J3480; J3490; J7030; J7040; J7042; J7050; J7060